=== PATIENT | female | born 1970 | race African-American/Black ===

== ENCOUNTER → 2016-09-22 | Outpatient (CLI) | payer MEDICAID, MEDICARE | LOC: RAD 08:11 | PROVIDERS: ATTEND Specialist | DX: D13.7 Benign neoplasm of endocrine pancreas (principal); R10.9 Unspecified abdominal pain; R51 Headache | CPT/HCPCS: 70450; 74150 ==

== ENCOUNTER 2016-10-10 08:05 | Emergency (ER) | payer MEDICARE ==
--- NOTE | 2016-10-10 10:03 | ER Document Report ---
ED General - General Chief Complaint: Abdominal Pain Stated Complaint: BODY PAIN Notes: Patient is a 46-year-old female presents emergency Department with multitude of complaints. Her primary complaint today is that she has had a cough for the past 3 months and has been coughing up blood for the past 2 weeks with associated right side chest pain, shortness of breath and dyspnea on exertion. She states that the blood has been blood tinger sputum after coughing aggressively. Her SOB resolves after albuterol which is consistent with her history of asthma. Patient denies any family history of cancer, blood clots. Patient is a nonsmoker. She states that she has seen her heme/onc physician Dr. George recently for a routine follow-up for her iron deficiency anemia and she was referred over to the radiology Department for an x-ray Tuesday but she states she lost the paperwork and was unable to go. At this time she states that she does not feel short of breath and she is not experiencing any chest pain. States her chest pain only with coughing and is localized to the right aspect of her chest. In addition to her respiratory complaints, patient admits that she also is having abdominal complaints. Patient has been evaluated by Dr. Luc De Leon and has had both an EGD and colonoscopy. EGD revealed gastritis and colonoscopy revealed polyps. She has yet to follow up with him and she has not been taking any medications for the gastritis. At this time she admits to mild abdominal discomfort with slight nausea but denies any vomiting, diarrhea, constipation. Past medical history significant for iron deficiency anemia previously requiring blood transfusions, gastritis, carpal tunnel syndrome, asthma, chronic back pain, seasonal allergies Past surgical history significant for uterine ablation, colonoscopy and EGD Social history denies smoking, alcohol, drug use Allergies to IVP dye TRAVEL OUTSIDE OF THE [place] IN LAST 30 DAYS: No - Related Data Allergies/Adverse Reactions: iodipamide sodium [Iodipamide Sodium] Allergy (Severe, Verified 10/10/16 08:23) RESP DISTRESS IVP dye Allergy (Severe, Uncoded 10/10/16 08:23) resp distress Past Medical History - Social History Smoking Status: Never Smoker Chew tobacco use (# tins/day): No Frequency of alcohol use: None Drug Abuse: None Family History: Reviewed & Not Pertinent Patient has suicidal ideation: No Patient has homicidal ideation: No - Past Medical History Cardiac Medical History: Denies: Hx Coronary Artery Disease, Hx Heart Attack, Hx Hypertension Pulmonary Medical History: Reports: Hx Asthma - last episode over several months ago Denies: Hx Bronchitis, Hx COPD, Hx Pneumonia Neurological Medical History: Reports: Hx Migraine. Denies: Hx Cerebrovascular Accident, Hx Seizures Renal/ Medical History: Reports: Hx Kidney Stones. Denies: Hx Peritoneal Dialysis GI Medical History: Reports: Hx Gastroesophageal Reflux Disease. 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 Denies: Hx Hysterectomy, Hx Mastectomy, Hx Open Heart Surgery, Hx Pacemaker - Immunizations Hx Diphtheria, Pertussis, Tetanus Vaccination: No Review of Systems - Review of Systems Constitutional: No symptoms reported EENT: No symptoms reported Cardiovascular: See HPI Respiratory: See HPI Gastrointestinal: See HPI Genitourinary: No symptoms reported Female Genitourinary: No symptoms reported Musculoskeletal: Other - admits to right shoulder pain-constant, worse with motion, radiates into her neck Skin: No symptoms reported Hematologic/Lymphatic: See HPI Neurological/Psychological: No symptoms reported Physical Exam - Vital signs Vitals: Temp Pulse Resp BP Pulse Ox 98.3 F 106 H 24 H 150/86 H 99 10/10/16 08:18 10/10/16 08:18 10/10/16 08:18 10/10/16 08:18 10/10/16 08:18 - Notes Notes: PHYSICAL EXAM GENERAL: Alert, interacts well. HEAD: Normocephalic, atraumatic. EYES: Pupils equal, round, and reactive to light. Extraocular movements intact. ENT: Oral mucosa moist, tongue midline. NECK: Full range of motion. Supple. Trachea midline. Tenderness to palpation of the right trapezius. LUNGS: diminshed auscultation bilaterally, no wheezes, rales, or rhonchi. No respiratory distress. HEART: Regular rate and rhythm. No murmurs, gallops, or rubs. Dorsalis muscle tenderness to palpation, patient denies this is her chest pain with cough. ABDOMEN: Soft, nondistended, nontender. No guarding, rebound, or rigidity.. Bowel sounds present in all 4 quadrants. EXTREMITIES: Moves all 4 extremities spontaneously. No edema, radial and dorsalis pedis pulses 2/4 bilaterally. No cyanosis. NEUROLOGICAL: Alert and oriented x3. Normal speech. PSYCH: Normal affect, normal mood. SKIN: Warm, dry, normal turgor. No rashes or lesions noted. Course - Re-evaluation Re-evalutation: 10/10/16 11:09 Patient is a 46-year-old female who presents complaining of intermittent cough with associated shortness of breath. Her presentation is consistent with chronic asthma. Currently she is hemodynamically stable, no acute distress and afebrile no concern for respiratory distress. Her chest x-ray does not reveal any acute cardiopulmonary process. no concern for pneumonia. Regards to her GI complaint, this is consistent with gastroenteritis which was found on her EGD. Her symptoms have responded to GI cocktail. Discharged home and can follow up with GI and PCP. - Vital Signs Vital signs: Temp Pulse Resp BP Pulse Ox 98.3 F 106 H 24 H 150/86 H 99 10/10/16 08:18 10/10/16 08:18 10/10/16 08:18 10/10/16 08:18 10/10/16 08:18 - Laboratory Result Diagrams: 10/10/16 10:10 10/10/16 10:10 Laboratory results interpreted by me: 10/10/16 10/10/16 09:55 10:10 WBC 3.7 L Urine Blood MODERATE H - Diagnostic Test Radiology reviewed: Image reviewed, Reports reviewed Discharge - Discharge Clinical Impression: Cough, Indigestion Condition: Good Disposition: HOME, SELF-CARE Additional Instructions: ASTHMA: You have been diagnosed as having asthma. This is a condition where there is episodic tightness in the bronchial tubes. Allergies, infections, and polluted or cold air may be contributing factors. Emergency treatment of a severe asthma attack may include adrenaline shots , or bronchodilator aerosol. You may feel lightheaded, have a decreased exercise tolerance and a rapid pulse for an hour or two. Rest and get plenty of fluids. Home treatment of asthma requires bronchodilator drugs. These can be administered by injection, inhalation, or by mouth. Antibiotics and corticosteroids may be required for some patients. You should avoid chemical fumes, dusts, pollens, and exercising in very cold or dry air. If you smoke, stop!! If you develop a fever, increased wheezing, chest pain, or severe shortness of breath, you should contact the doctor immediately. INHALED BRONCHODILATORS: You have received treatment(s) of and/or prescription for an inhaled bronchodilator -- a medication which stimulates the airways in the lung to dilate. This improves the flow of air in asthma, bronchitis, and emphysema. These medicines have some similarity to adrenaline, and can cause similar side effects: shakiness, racing heart, and a sense of nervousness. These side effects decrease with time. Contact your doctor if these side effects are severe. Do not over-use the medicine. Too-frequent use of the inhaler may make it ineffective. Call your doctor if the inhaler is not controlling your symptoms at the prescribed doses. FOLLOW-UP CARE: If you have been referred to a physician for follow-up care, call the physician s office for an appointment as you were instructed or within the next two days. If you experience worsening or a significant change in your symptoms, notify the physician immediately or return to the Emergency Department at any time for re-evaluation. Gastritis You have an inflammation of the stomach called gastritis. This commonly causes upper abdominal pain, nausea, and vomiting. In severe cases, bleeding of the stomach lining can occur. Gastritis can be caused by bacteria or viruses , alcohol, or stomach-irritating drugs. Begin with sips of clear liquids. Take increasing amounts of fluid over the first 24 hours. Then start small amounts of bland foods (such as dry toast , applesauce, mashed potato). Gradually resume your usual diet. You should take antacids every two hours until the pain has subsided. Acid -suppressing drugs may be prescribed as well. Avoid aspirin, caffeine, tobacco , and alcohol. If the abdominal pain worsens, or there is evidence of major bleeding in the stomach (such as black, tarry stool, bloody or black vomit, or lightheadedness), you should return immediately. Call the doctor if you aren't improved in 24 to 36 hours. Prescriptions: Albuterol Sulfate [Proair HFA Inhalation Aerosol 8.5 gm MDI] 1 puff IH Q4 PRN # 1 mdi PRN Reason: Lansoprazole [Prevacid] 15 mg PO DAILY #14 capsule.dr Forms: Elevated Blood Pressure Referrals: VIDYA GEORGE MD [Primary Care Provider] - Follow up as needed JAGUAR DE LEON MD [ACTIVE STAFF] - Follow up as needed
[2016-10-10] MEDS ORDERED: ALBUTEROL SULFATE 0.083% NEB 2.5 MG/3 ML AMPUL NEB ONE (10:09)
[2016-10-10 10:15] LABS: APPEARANCE,URINE SLIGHTLY-CLOUDY; BILIRUBIN,URINE NEGATIVE (NEGATIVE); GLUCOSE, URINE NEGATIVE (NEGATIVE); KETONES,URINE NEGATIVE (NEGATIVE); LEUKOCYTE ESTERASE,URINE NEGATIVE (NEGATIVE); NITRITE,URINE NEGATIVE (NEGATIVE); PROTEIN,URINE NEGATIVE (NEGATIVE); URINE SPECIFIC GRAVITY 1.016; UROBILINOGEN,URINE NEGATIVE mg/dL (<2.0)
[2016-10-10 10:24] LABS: ABSOLUTE EOSINOPHILS # (AUTO) 0.1 10^3/uL (0.0-0.6); ABSOLUTE LYMPHOCYTES (AUTO) 1.3 10^3/uL (0.5-4.7); ABSOLUTE MONOCYTES (AUTO) 0.3 10^3/uL (0.1-1.4); BASOPHILS % (AUTO) 0.3 % (0-2); EOSINOPHILS % (AUTO) 3.5 % (0-6); HEMATOCRIT 41.4 % (36.0-47.0); HEMOGLOBIN 13.8 g/dL (12.0-15.5); LYMPHOCYTES % (AUTO) 33.9 % (13-45); MEAN CORPUSCULAR HEMOGLOBIN 30.3 pg (27.0-33.4); MEAN CORPUSCULAR HGB CONC 33.4 g/dL (32.0-36.0); MEAN CORPUSCULAR VOLUME 91 fl (80-97); RED BLOOD COUNT 4.56 10^6/uL (3.72-5.28); RED CELL DISTRIBUTION WIDTH 13.1 % (11.5-14.0); SEGMENTED NEUTROPHILS % (AUTO) 53.3 % (42-78); WHITE BLOOD COUNT 3.7 10^3/uL (4.0-10.5)
[2016-10-10 10:50] LABS: ALANINE AMINOTRANSFERASE 30 U/L (9-52); ALBUMIN 4.4 g/dL (3.5-5.0); ALKALINE PHOSPHATASE 55 U/L (38-126); ANION GAP 9 (5-19); ASPARTATE AMINO TRANSFERASE 22 U/L (14-36); BILIRUBIN,TOTAL 1.2 mg/dL (0.2-1.3); BLOOD UREA NITROGEN 12 mg/dL (7-20); CALCIUM 9.9 mg/dL (8.4-10.2); CARBON DIOXIDE 29 mmol/L (22-30); CHLORIDE 105 mmol/L (98-107); CREATININE RESULT 0.74 mg/dL (0.52-1.25); GLUCOSE 99 mg/dL (75-110); POTASSIUM 4.6 mmol/L (3.6-5.0); SODIUM 142.5 mmol/L (137-145); TOTAL PROTEIN 7.2 g/dL (6.3-8.2)
[2016-10-10] MEDS ORDERED: LIDOCAINE 2% JELLY 30 ML TUBE TOP ONE (11:05)
[2016-10-10] MEDS ORDERED: MAG HYDROX/AL HYDROX/SIMETH SUSP 30 ML UDCUP PO ONE (11:05)
[2016-10-10] MEDS ORDERED: LIDOCAINE 2% VISCOUS SOLN 20 ML UDCUP PO ONE (11:17)
[2016-10-10 11:32] VITALS: BP 129/72
== END 2016-10-10 11:29 | disposition home or self-care (01) ==
LOC: ER 08:05
DX: R05 Cough (principal); K30 Functional dyspepsia; R10.9 Unspecified abdominal pain; R52 Pain, unspecified; R07.9 Chest pain, unspecified; R06.02 Shortness of breath
CPT/HCPCS: 94640; 99284; 36415; 85025; 80053; 81001; 87804; 71020; J3490; A9270

== ENCOUNTER → 2016-11-09 | Outpatient (CLI) | payer MEDICARE | LOC: RAD 08:02 | PROVIDERS: ATTEND Internal Medicine Gastroenterology | DX: R10.84 Generalized abdominal pain (principal) | CPT/HCPCS: 78227; A9537; Q9969; J2805 ==

== ENCOUNTER 2016-12-07 10:36 | Day surgery (SDC) | payer MEDICARE ==
--- NOTE | 2016-11-23 11:20 | EKG REPORT ---
SEVERITY:- NORMAL ECG - SINUS RHYTHM : Confirmed by: Trever Dickson 23-Nov-2016 11:19:56
[2016-11-23 11:34] LABS: HEMATOCRIT 40.2 % (36.0-47.0); HEMOGLOBIN 13.5 g/dL (12.0-15.5); HGB HCT DIFFERENCE 0.3; MEAN CORPUSCULAR HEMOGLOBIN 30.4 pg (27.0-33.4); MEAN CORPUSCULAR HGB CONC 33.6 g/dL (32.0-36.0); MEAN CORPUSCULAR VOLUME 90 fl (80-97); RED BLOOD COUNT 4.45 10^6/uL (3.72-5.28); RED CELL DISTRIBUTION WIDTH 13.7 % (11.5-14.0); WHITE BLOOD COUNT 4.6 10^3/uL (4.0-10.5)
[2016-11-23 11:39] LABS: PARTIAL THROMBOPLASTIN TIME 26.6 SEC (23.5-35.8); PROTHROMBIN TIME 12.7 SEC (11.4-15.4)
[~2016-12-07 10:36] MED LIST: CEFAZOLIN 1 GM/D5W RTU 1 GM/50 ML RTUPB IV PRN; LIDOCAINE 0.5% INJ-PF (5 MG/ML) 50 ML SDV INJ PRN; RINGERS SOLUTION,LACTATED 1,000 ML IV PRN
[2016-12-07] MEDS ORDERED: MIDAZOLAM 2 MG/2 ML INJ ONE (11:16)
[2016-12-07] MEDS ORDERED: PROPOFOL INJ 200 MG/20 ML VIAL IV ONE (11:17)
[2016-12-07] MEDS ORDERED: LIDOCAINE 0.5% INJ-PF (5 MG/ML) 50 ML SDV ONE (11:17)
[2016-12-07] MEDS ORDERED: DIPHENHYDRAMINE HCL 50 MG/ML VIAL IV PRN (13:26)
[2016-12-07] MEDS ORDERED: MEPERIDINE HCL/PF INJ 25 MG/1 ML DISP.SYRIN IV PRN (13:26)
[2016-12-07] MEDS ORDERED: OXYCODONE-ACETAMINOPHEN 5-325 MG TABLET PO PRN ×2 (13:26)
[2016-12-07] MEDS ORDERED: FENTANYL CITRATE INJ/PF 100 MCG/2 ML AMPUL IV PRN ×3 (13:26)
[2016-12-07] MEDS ORDERED: MORPHINE SULFATE 10 MG/ML INJ IV PRN (13:26)
[2016-12-07] MEDS ORDERED: PROMETHAZINE HCL INJ 25 MG/1 ML VIAL IV PRN ×2 (13:26)
[2016-12-07] MEDS: FLUMAZENIL INJ 0.5 MG/5 ML VIAL IV ONE ×2 (13:56→13:58)
--- NOTE | 2016-12-07 13:59 | Operative Report ---
Operative Report DATE OF SURGERY: 12/07/16 PREOPERATIVE DIAGNOSIS: Right carpal tunnel syndrome POSTOPERATIVE DIAGNOSIS: Same OPERATION: Right carpal tunnel release SURGEON: MARIELENA UNDERWOOD ANESTHESIA: IV-Regional - Fifty-Six block TISSUE REMOVED OR ALTERED: None COMPLICATIONS: None ESTIMATED BLOOD LOSS: minimal PROCEDURE: The correct side for carpal tunnel release was identified with the patient. The patient was then brought into the operating room and placed on the operating room table in a supine position. A Manuel block was instilled by anesthesia. The tourniquet was set at approximately 270mm Hg. The arm was then prepped with a Betadine scrub and Betadine solution and draped in a sterile aseptic manner. An outlined overlying the carpal tunnel was made and a small zig zag across the wrist was outlined. An incision was then made with a 15 blade. This was carried down through the superficial palmar fascia. The palmaris brevis was identified and was coagulated as we proceeded deeper. Dissection continued until the transverse carpal ligament was exposed. Using a [place] blade a small dissection was performed to get past the surface of the transverse carpal ligament and enter into the carpal canal. After there was exposure a [place] elevator was placed to protect the median nerve. Using the freer elevator and the tunnel while protecting the nerve [id number] the transverse carpal ligament was released distally and proximally. Throughout the dissection great caution was used to identify any anomalous branching of the median nerve and motor branch. Along the wrist a small zig zag was carried to the distal most portion of the forearm. We then went ahead and freed the distal and the brachial fascia of the forearm in order to minimize any areas of possible entrapment in the future.. After the dissection was completed confirmation of release into the distal forearm of the antebrachial fascia as well as distally showing the dark yellow fat of the palm. The arch was identified and was not jeopardized throughout the dissection. An epineurotomy was performed of along the course of the median nerve so that there will be no further areas of any compression to the nerve. Throughout the case the bipolar was used for hemostasis . Betadine saline irrigation was performed in the operative field. Once good hemostasis was obtained the closure was then performed using 4-0 and 5 -0 Prolene horizontal mattress and simple sutures. The tourniquet was then released and there was good blood flow returned to the fingers and no signs of any active bleeding at the incision line. Bacitracin was applied then Xeroform was applied and 4 x 4's were placed. A splint was then applied with web roll and Ortho-Glass with Tristian wraps. Patient was then reversed from anesthesia and taken to the [facility] for recovery. This dictation was performed with straight and actually speaking. If there are any irregularities please contact the dictating physician. Subjective: No complaints Objective: Vital signs stable afebrile No bleeding Dressing intact Assessment and plan: Doing well. Elevate the operative site. Resume medications. Take antibiotics for 1 day Follow-up Full instructions were given to the patient and family and they understand Portions of this note may be dictated using [employer] voice recognition software. Occasional variations and spelling and vocabulary could be possible and are unintentional. Additionally, there is a chance that some errors may not be caught or corrected. Please notify the offer of any discrepancies noted or if any statements are unclear.
--- NOTE | 2016-12-07 14:03 | PDOC DISCHARGE SUMMARY ---
Discharge Summary (SDC) - Discharge Final Diagnosis: Right carpal tunnel syndrome Date of Surgery: 12/07/16 Condition: Good Treatment or Instructions: Antibiotics for 1 day, then discontinue. Elevate operative area to decrease swelling. Do not strain, or lift heavy objects. Call for excessive bleeding, increased temperature of 101, uncontrolled pain, or excessive nausea or vomiting. You may reach Dr. Ayers through his office at [phone]. In the event of an emergency after hours, then contact Dr. Ayers through [facility]. Return to the office for a postop check on . The time will be scheduled by the nursing staff of [facility] prior to discharge. Please give the patient a copy of their labs and EKG so they can bring this to their PMD. Thank you Portions of this note may be dictated using [employer] voice recognition software. Occasional variations and spelling and vocabulary could be possible and are unintentional. Additionally, there is a chance that some errors may not be caught or corrected. Please notify the offer of any discrepancies noted or if any statements are unclear. Discharge Diet: As Tolerated Respiratory Treatments at Home: Deep Breathing/Coughing Discharge Activity: Activity As Tolerated Report the Following to Your Physician Immediately: Swelling, Warmth - Keep right hand elevated and monitor capillary refill. There are any changes please contact Dr. Ayers.
[2016-12-07] MEDS ORDERED: OXYCODONE-ACETAMINOPHEN 5-325 MG TABLET ONE (15:56)
[2016-12-07 16:58] VITALS: BP 142/90
== END 2016-12-07 16:45 | disposition home or self-care (01) ==
LOC: OROUT 10:36
PROVIDERS: ATTEND Plastic Surgery
PROC: 01N50ZZ Release Median Nerve, Open Approach (ICD-10-PCS; principal; 2016-12-07 12:30)
DX: G56.01 Carpal tunnel syndrome, right upper limb (principal); M19.90 Unspecified osteoarthritis, unspecified site; G43.909 Migraine, unspecified, not intractable, without status migrainosus; J45.909 Unspecified asthma, uncomplicated; M47.9 Spondylosis, unspecified; Z79.01 Long term (current) use of anticoagulants; Z79.51 Long term (current) use of inhaled steroids; Z79.899 Other long term (current) drug therapy
CPT/HCPCS: 93005; 36415; 84703; 85027; 85610; 85730; 81025; 93010; 64721; J3490 ×2; J2250; A9270; J2704

== ENCOUNTER 2016-12-17 16:48 | Emergency (ER) | payer MEDICARE ==
[2016-12-17 17:08] VITALS: BP 126/82
--- NOTE | 2016-12-17 19:52 | ER Document Report ---
ED General - General Mode of Arrival: Ambulatory Information source: Patient TRAVEL OUTSIDE OF THE [place] IN LAST 30 DAYS: No - General Chief Complaint: Post Surgical Pain Stated Complaint: POST SURGICAL SWELLING Time Seen by Provider: 12/17/16 19:31 Notes: Patient presents today with complaints of "messing up" her carpal tunnel surgery wound. Patient states that she put her hand in warm water which she "was not supposed to do". Patient states that she has seen purulent discharge and she is now unable to move her fingers, both of which are subjective. (MARIANO STEPHENS) - Related Data Allergies/Adverse Reactions: iodipamide sodium [Iodipamide Sodium] Allergy (Severe, Verified 12/17/16 17:06) RESP DISTRESS IVP dye Allergy (Severe, Uncoded 12/17/16 17:06) resp distress Past Medical History - General Information source: Patient - Social History Smoking Status: Never Smoker Cigarette use (# per day): No Chew tobacco use (# tins/day): No Frequency of alcohol use: None Drug Abuse: None Lives with: Family Family History: Reviewed & Not Pertinent Patient has suicidal ideation: No Patient has homicidal ideation: No Pulmonary Medical History: Reports: Hx Asthma Neurological Medical History: Reports: Hx Migraine Renal/ Medical History: Reports: Hx Kidney Stones GI Medical History: Reports: Hx Gastroesophageal Reflux Disease Musculoskeltal Medical History: Reports Hx Arthritis - SPINE Psychiatric Medical History: Reports: Hx Depression Past Surgical History: Reports: Hx Section - x 4, Hx Dilation and Curettage, Hx Gynecologic Surgery - D & C, Hx Orthopedic Surgery - right leg as a child per pt, carpal tunnel, c-2 discectomy, Hx Rectal Surgery - hemorrhoids - Immunizations Hx Diphtheria, Pertussis, Tetanus Vaccination: Yes Review of Systems - Review of Systems Constitutional: No symptoms reported EENT: No symptoms reported Cardiovascular: No symptoms reported Respiratory: No symptoms reported Gastrointestinal: No symptoms reported Genitourinary: No symptoms reported Female Genitourinary: No symptoms reported Musculoskeletal: No symptoms reported Skin: See HPI, Other - "messed up" surgical wound Hematologic/Lymphatic: No symptoms reported Neurological/Psychological: No symptoms reported -: Yes All other systems reviewed and negative Physical Exam - Vital signs Vitals: Temp Pulse Resp BP Pulse Ox 98.6 F 80 16 126/82 H 99 12/17/16 17:07 12/17/16 17:07 12/17/16 17:07 12/17/16 17:07 12/17/16 17:07 - Notes Notes: Physical Exam: General: Alert, appears well. HEENT: Normocephalic. Atraumatic. PERRLA. Extraocular movements intact. Oropharynx clear. Neck: Supple. Respiratory: No respiratory distress. Abdominal: Normal Inspection. No distension. Extremities: Moves all four extremities. Neurological: Cranial nerves II-XII grossly intact bilaterally. Normal cognition. AAOx4. Normal speech. Psychological: Normal affect. Normal Mood. Skin: Wound to right hand consistent with carpal tunnel surgery, stitches in place, no drainage or surrounding erythema. No signs of infection. Patient able to move digits distally with good pulses. (MARIANO STEPHENS) Course - Re-evaluation Re-evalutation: 12/17/16 20:00 Patient presents to the emergency department for postop wound check. Dr. Ayers is a physician he did a carpal tunnel repair on her 2 weeks ago. He actually saw her in the office yesterday and the wound was looking well she said she soaked her splint in the water and he was concerned that might be macerated and wanted her to be checked. She thinks it is infected and says she cannot move anything in her arm or any of her fingers. On examination she is well- appearing nontoxic in no acute distress the incision is clean dry and intact there is no redness swelling drainage she is able to bend her wrist back-and- forth no signs of flexor tenosynovitis or acute cellulitis or abscess formation. I cannot palpate any abscesses or drainage. Pulses sensation and motor intact normal sensation. Unable to move all of her digits without any difficulty. I talked with Dr. Ayers on the telephone he asked me to start her on Keflex he is here in the office on Tuesday and discuss specific reasons for ED return sooner (CHRISTIANO SIM) - Vital Signs Vital signs: Temp Pulse Resp BP Pulse Ox 98.6 F 82 17 126/82 H 100 12/17/16 17:07 12/17/16 20:13 12/17/16 20:13 12/17/16 20:13 12/17/16 20:13 Discharge - Discharge Clinical Impression: Encounter for postoperative wound check Condition: Stable Disposition: HOME, SELF-CARE Additional Instructions: Carpal Tunnel SURGERY post op wound check Been seen for postop wound check your splint was wet as you had accidentally got wet water. The wound itself is healing well. I spoke with the surgeon who did your surgery he wants me to start her on Keflex have you call his office first thing on Tuesday and he will see him in the office on Tuesday. Can go ahead and start the antibiotics as well as ice and elevation were to put the splint back on. Return to the emergency department between and Tuesday for increasing worsening or new symptoms Prescriptions: Cephalexin Monohydrate [Keflex 500 mg Capsule] 500 mg PO QID #28 capsule Referrals: MARIELENA AYERS MD [ACTIVE STAFF] - (Call his office on Tuesday to be seen in follow-up on Tuesday return for increasing worsening or new symptoms) Scribe Attestation: 12/17/16 19:59 I personally performed the services described in the documentation, reviewed and edited the documentation which was dictated to my scribe in my presence, and it accurately records my words and actions. (CHRISTIANO SIM) Scribe Documentation - Scribe Written by Eulalio:: Eulalio Zuluaga, [id number] acting as scribe for :: Hola
[2016-12-17] MEDS ORDERED: CEPHALEXIN 500 MG CAPSULE PO ONE (20:02)
== END 2016-12-17 20:14 | disposition home or self-care (01) ==
LOC: ER 16:48
DX: G89.18 Other acute postprocedural pain (principal); K21.9 Gastro-esophageal reflux disease without esophagitis; Z87.442 Personal history of urinary calculi
CPT/HCPCS: 99283; A9270

== ENCOUNTER 2016-12-28 09:32 | Day surgery (SDC) | payer MEDICARE ==
[2016-12-21 09:30] LABS: HEMATOCRIT 40.8 % (36.0-47.0); HEMOGLOBIN 13.5 g/dL (12.0-15.5); HGB HCT DIFFERENCE -0.3; MEAN CORPUSCULAR HEMOGLOBIN 29.7 pg (27.0-33.4); MEAN CORPUSCULAR HGB CONC 33.1 g/dL (32.0-36.0); MEAN CORPUSCULAR VOLUME 90 fl (80-97); RED BLOOD COUNT 4.55 10^6/uL (3.72-5.28); RED CELL DISTRIBUTION WIDTH 13.7 % (11.5-14.0); WHITE BLOOD COUNT 5.2 10^3/uL (4.0-10.5)
[2016-12-21 09:55] LABS: ALANINE AMINOTRANSFERASE 35 U/L (9-52); ALBUMIN 4.4 g/dL (3.5-5.0); ALKALINE PHOSPHATASE 63 U/L (38-126); ANION GAP 13 (5-19); ASPARTATE AMINO TRANSFERASE 22 U/L (14-36); BILIRUBIN,DIRECT 0.6 mg/dL (0.0-0.4); BILIRUBIN,TOTAL 1.2 mg/dL (0.2-1.3); BLOOD UREA NITROGEN 13 mg/dL (7-20); CALCIUM 9.6 mg/dL (8.4-10.2); CARBON DIOXIDE 22 mmol/L (22-30); CHLORIDE 104 mmol/L (98-107); GLUCOSE 95 mg/dL (75-110); POTASSIUM 4.5 mmol/L (3.6-5.0); SODIUM 138.8 mmol/L (137-145); TOTAL PROTEIN 7.8 g/dL (6.3-8.2)
[~2016-12-28 09:32] MED LIST changes: +ACETAMINOPHEN 325 MG TABLET PO PRN; +BUPIVACAINE HCL 0.25 % INJ/PF (2.5 MG/1 ML) 30 ML VIAL ONE; +LACTATED RINGERS 1000 ML IV PRN; -LIDOCAINE 0.5% INJ-PF (5 MG/ML) 50 ML SDV INJ PRN
[2016-12-28] MEDS ORDERED: FENTANYL CITRATE INJ/PF 250 MCG/5 ML AMPULE ONE (09:51)
[2016-12-28] MEDS ORDERED: MIDAZOLAM 2 MG/2 ML INJ ONE (09:51)
[2016-12-28] MEDS ORDERED: PROPOFOL INJ 200 MG/20 ML VIAL IV ONE (09:52)
[2016-12-28] MEDS ORDERED: ACETAMINOPHEN 100 ML IV ONE (09:52)
[2016-12-28] MEDS ORDERED: ALBUTEROL SULFATE 0.083% NEB 2.5 MG/3 ML AMPUL NEB ONE (10:09)
[2016-12-28] MEDS ORDERED: PROMETHAZINE HCL INJ 25 MG/1 ML VIAL IV PRN ×2 (11:02)
[2016-12-28] MEDS ORDERED: MEPERIDINE HCL/PF INJ 25 MG/1 ML DISP.SYRIN IV PRN (11:02)
[2016-12-28] MEDS ORDERED: DIPHENHYDRAMINE HCL 50 MG/ML VIAL IV PRN (11:02)
[2016-12-28] MEDS ORDERED: FENTANYL CITRATE INJ/PF 100 MCG/2 ML AMPUL IV PRN ×3 (11:02)
[2016-12-28] MEDS ORDERED: OXYCODONE-ACETAMINOPHEN 5-325 MG TABLET PO PRN ×3 (11:02→12:05)
[2016-12-28] MEDS ORDERED: MORPHINE SULFATE 10 MG/ML INJ IV PRN (11:02)
[2016-12-28] MEDS ORDERED: ONDANSETRON HCL INJ/PF 4 MG/2 ML SDV IV PRN ×2 (11:02→12:05)
--- NOTE | 2016-12-28 12:01 | Operative Report ---
Operative Report DATE OF SURGERY: 12/28/16 PREOPERATIVE DIAGNOSIS: Biliary dyskinesia. POSTOPERATIVE DIAGNOSIS: Biliary dyskinesia, intra-abdominal adhesions. Pelvic venous congestion. Left ovarian cyst. Evidence of bilateral tubal ligations. OPERATION: Laparoscopic cholecystectomy. Laparoscopic lysis of adhesions. Exploratory laparoscopy. SURGEON: MAX DIAZ ANESTHESIA: GA TISSUE REMOVED OR ALTERED: gallbladder COMPLICATIONS: None ESTIMATED BLOOD LOSS: Minimal INTRAOPERATIVE FINDINGS: Normal-appearing liver, normal-appearing gallbladder, normal-appearing anterior surface of the stomach and first and second portion of the duodenum. Normal-appearing right colon. Normal-appearing appendix. Omental adhesions to the pelvis and to the anterior abdominal wall. Uterine enlargement. Evidence of bilateral tubal ligations. Pelvic venous congestion. Left ovarian cyst. PROCEDURE: Informed consent was obtained. Patient was brought to the operating room placed operating table in supine position. After satisfactory induction of general anesthesia, patient's abdomen was prepped and draped in usual sterile fashion. A supraumbilical midline incision was made and dissection carried down to the fascia the peritoneal cavity entered without difficulty. Ferro trocar was inserted. Pneumoperitoneum produced good patient toleration. 5 mm trocar was placed in the subxiphoid location.Two 5 mm trochars were placed in the right subcostal location. Exploratory laparoscopy was performed first. The liver and gallbladder appeared normal. The anterior surface of the stomach and the first and second portion of the duodenum appeared to be normal. There were omental adhesions to the lower midline these adhesions were taken down taking great care to avoid bleeding and injury to the underlying structures. There were omental adhesions to the right pelvic sidewall these adhesions were also taken down. The right colon and the appendix appeared normal. The uterus appeared enlarged. She had evidence of bilateral tubal ligations. Her left ovary had benign appearing cysts. The right ovary appeared normal. She had evidence of pelvic venous congestion. [facility] consultation was obtained intraoperatively and they felt that the appearance was not suspicious for malignancy however she may benefit from a [facility] consultation as an outpatient for her pelvic venous congestion. The gallbladder was grasped and retracted cephalad over the dome of the liver. The infundibulum of the gallbladder was grasped retracted laterally and inferiorly thus exposing calot's triangle. The cystic duct gallbladder junction was clearly identified and the cystic duct was clipped and divided. Cystic artery was likewise taken. The gallbladder was taken off the gallbladder bed using the hook electrocautery technique. The gallbladder was removed with an Endobag through the Ferro trocar site fascial defect. Hemostasis appeared excellent. All trochars were removed under the direct vision a laparoscope to ensure hemostasis. The Ferro trocar site fascial defect was closed with interrupted Vicryl sutures. All skin incisions were closed with subcuticular interrupted Monocryl sutures. Marcaine was injected at the port sites. Patient tolerated procedure well no apparent complications and was taken to the recovery area in stable condition.
[2016-12-28] MEDS ORDERED: RINGERS SOLUTION,LACTATED 1,000 ML IV PRN (12:05)
--- NOTE | 2016-12-28 12:07 | PDOC DISCHARGE SUMMARY ---
Discharge Summary (SDC) - Discharge Final Diagnosis: Biliary dyskinesia. Pelvic venous congestion. Left ovarian cyst. Intra- abdominal adhesions. Date of Surgery: 12/28/16 Discharge Date: 12/28/16 Condition: Good Treatment or Instructions: Laparoscopic cholecystectomy with exploratory laparoscopy with laparoscopic lysis of adhesions. May discharge patient home when met discharge criteria. Follow-up with me in 2 weeks. Stay active but avoid strenuous activity. May shower tomorrow. Steri-Strips on. Prescriptions: Oxycodone HCl/Acetaminophen [Percocet 5-325 mg Tablet] 1 tab PO ASDIR PRN #25 tablet PRN Reason: Discharge Diet: As Tolerated Discharge Activity: Activity As Tolerated Report the Following to Your Physician Immediately: Yellow Skin, Fever over 101 Degrees, Unusual Bleeding, Redness, Drainage-Foul Smelling
[2016-12-28] MEDS ORDERED: FENTANYL CITRATE INJ/PF 100 MCG/2 ML AMPUL ONE (12:27)
[2016-12-28] MEDS ORDERED: IBUPROFEN INJ 800 MG/8 ML VIAL IV ONE (12:48)
[2016-12-28 13:00] LABS: ALANINE AMINOTRANSFERASE 34 U/L (9-52); ALKALINE PHOSPHATASE 57 U/L (38-126); ASPARTATE AMINO TRANSFERASE 21 U/L (14-36); BILIRUBIN,DIRECT 0.3 mg/dL (0.0-0.4); BILIRUBIN,TOTAL 0.8 mg/dL (0.2-1.3); TOTAL PROTEIN 6.9 g/dL (6.3-8.2)
[2016-12-28 14:36] VITALS: BP 116/74
[2016-12-28] MEDS ORDERED: GLYCOPYRROLATE INJ 0.4 MG/2 ML VIAL ONE (15:11)
[2016-12-28] MEDS ORDERED: NEOSTIGMINE METHYLSULFATE 10 MG/10 ML VIAL ONE (15:11)
[2016-12-28] MEDS ORDERED: ONDANSETRON HCL INJ/PF 4 MG/2 ML SDV ONE (15:11)
[2016-12-28] MEDS ORDERED: SUCCINYLCHOLINE CHLORIDE INJ 200 MG/10 ML VIAL ONE (15:11)
[2016-12-28] MEDS ORDERED: VECURONIUM BROMIDE INJ 10 MG VIAL IV ONE (15:11)
[2016-12-28] MEDS ORDERED: DEXAMETHASONE SOD PHOSPHATE INJ 4 MG/1 ML VIAL ONE (15:11)
[2016-12-28] MEDS ORDERED: LIDOCAINE 2% INJ-PF (20 MG/ML) 10 ML AMPUL ONE (15:11)
== END 2016-12-28 14:38 | disposition home or self-care (01) ==
LOC: OROUT 09:32
PROVIDERS: ATTEND Surgery
PROC: 0WJJ4ZZ Inspection of Pelvic Cavity, Percutaneous Endoscopic Approach (ICD-10-PCS; 2016-12-28)
PROC: 0FT44ZZ Resection of Gallbladder, Percutaneous Endoscopic Approach (ICD-10-PCS; principal; 2016-12-28 11:30)
DX: K81.1 Chronic cholecystitis (principal); N83.202 Unspecified ovarian cyst, left side; K66.0 Peritoneal adhesions (postprocedural) (postinfection); K21.9 Gastro-esophageal reflux disease without esophagitis; E16.2 Hypoglycemia, unspecified; J45.909 Unspecified asthma, uncomplicated; M19.90 Unspecified osteoarthritis, unspecified site; G43.909 Migraine, unspecified, not intractable, without status migrainosus; D64.9 Anemia, unspecified; Z92.89 Personal history of other medical treatment; Z91.041 Radiographic dye allergy status
CPT/HCPCS: 36415 ×2; 83690; 85027; 81025; 80076; 80053; 88304 ×2; 47562; J2250; J0690; J1100; J3010 ×2; J3490 ×2; A9270 ×2; J0330; J2405; J2704; J0131; J1741; 790

== ENCOUNTER 2017-02-23 05:14 | Inpatient (IN) | payer MEDICARE ==
[2017-02-14 12:38] LABS: APPEARANCE,URINE SLIGHTLY-CLOUDY; BILIRUBIN,URINE NEGATIVE (NEGATIVE); GLUCOSE, URINE NEGATIVE (NEGATIVE); KETONES,URINE NEGATIVE (NEGATIVE); LEUKOCYTE ESTERASE,URINE NEGATIVE (NEGATIVE); NITRITE,URINE NEGATIVE (NEGATIVE); PROTEIN,URINE NEGATIVE (NEGATIVE); URINE SPECIFIC GRAVITY 1.026; UROBILINOGEN,URINE NEGATIVE mg/dL (<2.0)
[2017-02-14 12:46] LABS: HEMATOCRIT 41.7 % (36.0-47.0); HEMOGLOBIN 13.5 g/dL (12.0-15.5); HGB HCT DIFFERENCE -1.2; MEAN CORPUSCULAR HEMOGLOBIN 29.3 pg (27.0-33.4); MEAN CORPUSCULAR HGB CONC 32.4 g/dL (32.0-36.0); MEAN CORPUSCULAR VOLUME 90 fl (80-97); RED BLOOD COUNT 4.61 10^6/uL (3.72-5.28); RED CELL DISTRIBUTION WIDTH 13.8 % (11.5-14.0); WHITE BLOOD COUNT 3.3 10^3/uL (4.0-10.5)
[2017-02-14 13:12] LABS: ALANINE AMINOTRANSFERASE 38 U/L (9-52); ALBUMIN 4.5 g/dL (3.5-5.0); ALKALINE PHOSPHATASE 68 U/L (38-126); ANION GAP 11 (5-19); ASPARTATE AMINO TRANSFERASE 26 U/L (14-36); BILIRUBIN,DIRECT 0.3 mg/dL (0.0-0.4); BILIRUBIN,TOTAL 1.2 mg/dL (0.2-1.3); BLOOD UREA NITROGEN 13 mg/dL (7-20); CALCIUM 9.4 mg/dL (8.4-10.2); CARBON DIOXIDE 27 mmol/L (22-30); CHLORIDE 103 mmol/L (98-107); CREATININE RESULT 0.71 mg/dL (0.52-1.25); GLUCOSE 89 mg/dL (75-110); POTASSIUM 4.2 mmol/L (3.6-5.0); SODIUM 141.1 mmol/L (137-145); TOTAL PROTEIN 7.8 g/dL (6.3-8.2)
[~2017-02-23 05:14] MED LIST changes: -ACETAMINOPHEN 325 MG TABLET PO PRN; -BUPIVACAINE HCL 0.25 % INJ/PF (2.5 MG/1 ML) 30 ML VIAL ONE; -LACTATED RINGERS 1000 ML IV PRN; +LIDOCAINE 0.5% INJ-PF (5 MG/ML) 50 ML SDV INJ PRN; -RINGERS SOLUTION,LACTATED 1,000 ML IV PRN
[2017-02-23] MEDS ORDERED: MIDAZOLAM 2 MG/2 ML INJ ONE (07:07)
[2017-02-23] MEDS ORDERED: FENTANYL CITRATE INJ/PF 250 MCG/5 ML AMPULE ONE (07:07)
[2017-02-23] MEDS ORDERED: LIDOCAINE 2% INJ-PF (20 MG/ML) 10 ML AMPUL ONE (07:07)
[2017-02-23] MEDS ORDERED: ONDANSETRON HCL INJ/PF 4 MG/2 ML SDV ONE (07:08)
[2017-02-23] MEDS ORDERED: DEXAMETHASONE SOD PHOSPHATE INJ 4 MG/1 ML VIAL ONE (07:08)
[2017-02-23] MEDS ORDERED: ACETAMINOPHEN 100 ML IV ONE (07:08)
[2017-02-23] MEDS ORDERED: PROPOFOL INJ 200 MG/20 ML VIAL IV ONE (07:08)
[2017-02-23] MEDS ORDERED: EPHEDRINE SULFATE INJ 50 MG/1 ML AMPULE ONE (07:08)
[2017-02-23] MEDS ORDERED: HYDROMORPHONE HCL INJ/PF 2 MG/ML AMPULE ONE (07:10)
[2017-02-23] MEDS ORDERED: OXYCODONE-ACETAMINOPHEN 5-325 MG TABLET PO PRN ×3 (07:52→16:34)
[2017-02-23] MEDS ORDERED: PROMETHAZINE HCL INJ 25 MG/1 ML VIAL IV PRN ×2 (07:52)
[2017-02-23] MEDS ORDERED: FENTANYL CITRATE INJ/PF 100 MCG/2 ML AMPUL IV PRN ×3 (07:52)
[2017-02-23] MEDS ORDERED: MEPERIDINE HCL/PF INJ 25 MG/1 ML DISP.SYRIN IV PRN (07:52)
[2017-02-23] MEDS ORDERED: MORPHINE SULFATE 10 MG/ML INJ IV PRN (07:52)
[2017-02-23] MEDS ORDERED: ONDANSETRON HCL INJ/PF 4 MG/2 ML SDV IV PRN ×2 (07:52→12:33)
[2017-02-23] MEDS ORDERED: DIPHENHYDRAMINE HCL 50 MG/ML VIAL IV PRN (07:52)
[2017-02-23] MEDS ORDERED: CEFAZOLIN INJ 1 GM VIAL ONE (08:04)
--- NOTE | 2017-02-23 10:24 | Operative Report ---
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 General anesthesia was induced. Her abdomen perineum and vagina were prepared and draped in sterile fashion. Her bladder was drained with a Martinez catheter. A vertical incision was made on her old scar. This was carried down the level of the fascia which was nicked in the midline. Fascial incision was extended superiorly and inferiorly. Peritoneum was elevated and incised into the abdominal cavity. The peritoneum incision was then incised superiorly and inferiorly taking care not to injure bladder. The Mobius retractor was then placed. The bowel was packed back using 3 moist lap sponges. The uterus was grasped with Cole thyroid clamp. The round ligaments were clamped cut and ligated using 0 Vicryl suture. The anterior leaf of the broad broad ligament was incised creating a bladder flap. As stated there were many dense adhesions over the anterior aspect of the uterus and cervix and the bladder and adhesions were taken off the uterus and cervix sharply with Metzenbaum scissors. There was no evidence of injury to the bladder. The utero-ovarian pedicles were isolated and then clamped ligated and cut using the LigaSure device. The tube was absent on the left side. The small distal fallopian tube on the right side was removed. The uterine arteries were skeletonized as much as possible however as stated previously she has very dilated vasculature in this area. The broad ligament had a lot of venous vasculature and this was taken down right next to the uterus using the LigaSure device to clamp and ligate and cut the broad ligament. As stated previously the bladder had been sharply dissected off the cervix and was well down in the pelvis. The uterine arteries were then clamped ligated and cut with the LigaSure device. Upon reaching the cardinal ligaments these were clamped with a straight Mike clamp cut and ligated with 0 Vicryl in a transfixation technique. Upon reaching the vaginal angles the vaginal angles were clamped with curved Mike clamp cut and ligated with a 0 Vicryl suture completing the vaginal angle bilaterally. Vaginal cuff was closed with a running locking layer of 0 Vicryl. Several small areas of bleeding overlying the bladder dissection were closed with [id number] sutures of 3-0 chromic suture provided good hemostasis. Some Surgicel was placed and then over top of this area Interceed was placed. This had been irrigated and suctioned free of fluid. The retractor and moist lap sponges were removed. The abdominal fascia and peritoneum were closed in a running bulk closure using a 0 Prolene loop. Closed both the peritoneum and the fascia. Subcu layer was closed with a 2 0 plain gut suture. Skin was closed with stainless steel skin tina. The wound was dressed. She was extubated in the OR taken to recovery in stable condition.
[2017-02-23] MEDS ORDERED: FENTANYL CITRATE INJ/PF 100 MCG/2 ML AMPUL ONE (10:30)
[2017-02-23] MEDS ORDERED: MORPHINE SULFATE 10 MG/ML INJ ONE (11:09)
[2017-02-23] MEDS ORDERED: KETOROLAC TROMETHAMINE 60 MG/2 ML SDV ONE (11:48)
[2017-02-23] MEDS ORDERED: NEOSTIGMINE METHYLSULFATE 10 MG/10 ML VIAL ONE (11:48)
[2017-02-23] MEDS ORDERED: GLYCOPYRROLATE INJ 0.4 MG/2 ML VIAL ONE (11:48)
[2017-02-23] MEDS ORDERED: VECURONIUM BROMIDE INJ 10 MG VIAL IV ONE (11:48)
[2017-02-23] MEDS ORDERED: SUCCINYLCHOLINE CHLORIDE INJ 200 MG/10 ML VIAL ONE (11:48)
[2017-02-23] MEDS ORDERED: HYDROMORPHONE HCL INJ/PF 2 MG/ML AMPULE IV PRN ×2 (12:33→12:34)
[2017-02-23] MEDS ORDERED: ALBUTEROL SULFATE HFA (90 MCG/PUFF) 8 GM MDI (1 MDI/ER DISP) IH PRN (14:39)
[2017-02-23 15:16] LABS: HEMATOCRIT 37.1 % (36.0-47.0); HEMOGLOBIN 12.3 g/dL (12.0-15.5); HGB HCT DIFFERENCE -0.2; MEAN CORPUSCULAR HEMOGLOBIN 29.8 pg (27.0-33.4); MEAN CORPUSCULAR HGB CONC 33.3 g/dL (32.0-36.0); MEAN CORPUSCULAR VOLUME 90 fl (80-97); RED BLOOD COUNT 4.14 10^6/uL (3.72-5.28); RED CELL DISTRIBUTION WIDTH 13.5 % (11.5-14.0); WHITE BLOOD COUNT 13.6 10^3/uL (4.0-10.5)
[2017-02-23 15:26] LABS: ANION GAP 12 (5-19); BLOOD UREA NITROGEN 10 mg/dL (7-20); CALCIUM 8.9 mg/dL (8.4-10.2); CARBON DIOXIDE 22 mmol/L (22-30); CHLORIDE 101 mmol/L (98-107); CREATININE RESULT 0.65 mg/dL (0.52-1.25); GLUCOSE 127 mg/dL (75-110); POTASSIUM 4.2 mmol/L (3.6-5.0); SODIUM 135.2 mmol/L (137-145)
[2017-02-23] MEDS ORDERED: DICYCLOMINE HCL 10 MG CAPSULE PO SCH (18:00)
[2017-02-23] MEDS ORDERED: LUBIPROSTONE 24 MCG CAPSULE PO SCH (18:00)
[2017-02-23] MEDS ORDERED: KETOROLAC TROMETHAMINE INJ/PF 30 MG/1 ML SDV IV SCH (22:00)
[2017-02-23] MEDS ORDERED: PROMETHAZINE HCL 25 MG SUPP.RECT PR PRN (22:22)
[2017-02-23] MEDS ORDERED: PROMETHAZINE HCL 25 MG SUPP.RECT PR ONE (22:40)
[2017-02-23] MEDS: DIAZEPAM 5 MG TABLET PO SCH (23:44)
[2017-02-23] MEDS: LUBIPROSTONE 24 MCG CAPSULE PO SCH (23:44)
[2017-02-23] MEDS: MONTELUKAST SODIUM 10 MG TABLET PO SCH (23:44)
[2017-02-23] MEDS: DICYCLOMINE HCL 10 MG CAPSULE PO SCH (23:44)
[2017-02-24] MEDS: RINGERS SOLUTION,LACTATED 1,000 ML IV PRN ×2 (01:34→21:50)
[2017-02-24] MEDS: DICYCLOMINE HCL 10 MG CAPSULE PO SCH ×3 (06:04→21:53)
[2017-02-24 06:52] LABS: ABSOLUTE LYMPHOCYTES (AUTO) 1.5 10^3/uL (0.5-4.7); ABSOLUTE MONOCYTES (AUTO) 0.8 10^3/uL (0.1-1.4); ABSOLUTE NEUT (AUTO) 6.6 10^3/uL (1.7-8.2); BASOPHILS % (AUTO) 0.2 % (0-2); EOSINOPHILS % (AUTO) 0.3 % (0-6); HEMATOCRIT 31.4 % (36.0-47.0); HEMOGLOBIN 10.7 g/dL (12.0-15.5); HGB HCT DIFFERENCE 0.7; LYMPHOCYTES % (AUTO) 16.8 % (13-45); MEAN CORPUSCULAR HEMOGLOBIN 30.6 pg (27.0-33.4); MEAN CORPUSCULAR HGB CONC 34.1 g/dL (32.0-36.0); MEAN CORPUSCULAR VOLUME 90 fl (80-97); RED BLOOD COUNT 3.51 10^6/uL (3.72-5.28); RED CELL DISTRIBUTION WIDTH 13.8 % (11.5-14.0); SEGMENTED NEUTROPHILS % (AUTO) 73.7 % (42-78); WHITE BLOOD COUNT 8.9 10^3/uL (4.0-10.5)
[2017-02-24 07:23] LABS: ANION GAP 9 (5-19); BLOOD UREA NITROGEN 10 mg/dL (7-20); CALCIUM 8.7 mg/dL (8.4-10.2); CARBON DIOXIDE 24 mmol/L (22-30); CHLORIDE 104 mmol/L (98-107); GLUCOSE 90 mg/dL (75-110); POTASSIUM 4.3 mmol/L (3.6-5.0); SODIUM 136.5 mmol/L (137-145)
--- NOTE | 2017-02-24 08:22 | PDOC PROGRESS REPORT ---
Subjective Progress Note for:: 02/24/17 Subjective:: She is having some pain today and doesnt want pain meds. I have encouraged her to try some pain medication this am. Physical Exam - Physical Exam Vital Signs: Temp Pulse Resp BP Pulse Ox 98.9 F 71 16 114/68 100 02/24/17 03:27 02/24/17 03:27 02/24/17 03:27 02/24/17 03:27 02/24/17 03:27 Intake & Output 02/23/17 02/24/17 02/25/17 06:59 06:59 06:59 Intake Total 0 2700 Output Total 1650 Balance 0 1050 Weight 68.04 kg General appearance: PRESENT: cooperative, mild distress - She is alert today. Some discomfort. Abd is not distended and faint bowel sounds are present. Ext are nontender. Result Laboratory Results: 02/24/17 06:42 02/24/17 06:42 02/23/17 02/23/17 02/24/17 15:09 15:09 06:42 WBC 13.6 H RBC 4.14 Hgb 12.3 Hct 37.1 MCV 90 MCH 29.8 MCHC 33.3 RDW 13.5 Plt Count 175 Seg Neutrophils % Lymphocytes % Monocytes % Eosinophils % Basophils % Absolute Neutrophils Absolute Lymphocytes Absolute Monocytes Absolute Eosinophils Absolute Basophils Sodium 135.2 L 136.5 L Potassium 4.2 4.3 Chloride 101 104 Carbon Dioxide 22 24 Anion Gap 12 9 BUN 10 10 Creatinine 0.65 0.80 Est GFR ( Amer) > 60 > 60 Est GFR (Non-Af Amer) > 60 > 60 Glucose 127 H 90 Calcium 8.9 8.7 02/24/17 06:42 WBC 8.9 RBC 3.51 L Hgb 10.7 L Hct 31.4 L MCV 90 MCH 30.6 MCHC 34.1 RDW 13.8 Plt Count 171 Seg Neutrophils % 73.7 Lymphocytes % 16.8 Monocytes % 9.0 Eosinophils % 0.3 Basophils % 0.2 Absolute Neutrophils 6.6 Absolute Lymphocytes 1.5 Absolute Monocytes 0.8 Absolute Eosinophils 0.0 Absolute Basophils 0.0 Sodium Potassium Chloride Carbon Dioxide Anion Gap BUN Creatinine Est GFR ( Amer) Est GFR (Non-Af Amer) Glucose Calcium Assessment & Plan - Diagnosis (3) Anemia Qualifiers: Anemia type: other cause Other causes of anemia: other cause, not classified Qualified Code(s): D64.89 - Other specified anemias Is this a current diagnosis for this admission?: NoPlan: Anemia is from blood loss during the hysterectomy. - Time Time Spent with patient: 15-24 minutes Medications reviewed and adjusted accordingly: Yes Anticipated discharge: Home Within: within 48 hours
[2017-02-24] MEDS: IBUPROFEN 800 MG TABLET PO SCH ×2 (09:24→21:48)
[2017-02-24] MEDS: DIAZEPAM 5 MG TABLET PO SCH (09:25)
[2017-02-24] MEDS: LUBIPROSTONE 24 MCG CAPSULE PO SCH ×2 (09:28→21:53)
[2017-02-24] MEDS ORDERED: BUDESONIDE IH SCH (10:00)
[2017-02-24] MEDS ORDERED: ALBUTEROL SULFATE HFA (90 MCG/PUFF) 200 PUFF/8.5 GM MDI IH PRN (14:50)
[2017-02-24] MEDS ORDERED: ONDANSETRON HCL INJ/PF 4 MG/2 ML SDV IV PRN (14:50)
[2017-02-24] MEDS: MORPHINE SULFATE 10 MG/ML INJ IV PRN ×2 (17:00→21:49)
[2017-02-24] MEDS: MONTELUKAST SODIUM 10 MG TABLET PO SCH (21:53)
[2017-02-25] MEDS: DICYCLOMINE HCL 10 MG CAPSULE PO SCH ×3 (05:56→22:02)
--- NOTE | 2017-02-25 08:24 | PDOC PROGRESS REPORT ---
Subjective Progress Note for:: 02/25/17 Subjective:: She has pain today and is not eating. She reports no vomiting. Physical Exam - Physical Exam Vital Signs: Temp Pulse Resp BP Pulse Ox 98.1 F 74 18 106/61 100 02/25/17 04:02 02/25/17 04:02 02/25/17 04:02 02/25/17 04:02 02/25/17 04:02 Intake & Output 02/24/17 02/25/17 02/26/17 06:59 06:59 06:59 Intake Total 2700 450 Output Total 1650 Balance 1050 450 General appearance: PRESENT: mild distress Head exam: PRESENT: atraumatic - Her abdomen is soft, there are occasional bowel sounds. The incision is intact. Ext are nontender. Neurological exam: PRESENT: alert, oriented to time, oriented to situation Skin exam: PRESENT: dry, intact, warm. ABSENT: cyanosis, rash Result Laboratory Results: 02/24/17 06:42 02/24/17 06:42 Assessment & Plan - Diagnosis (1) Pelvic pain Is this a current diagnosis for this admission?: Yes (3) Anemia Qualifiers: Anemia type: other cause Other causes of anemia: other cause, not classified Qualified Code(s): D64.89 - Other specified anemias Is this a current diagnosis for this admission?: No - Time Time Spent with patient: 15-24 minutes Medications reviewed and adjusted accordingly: Yes Anticipated discharge: Home Within: within 48 hours - We have to get her eating and drinking and taking oral pain meds - Inpatient Certification Medical Necessity: Need for Pain Control - Plan Summary Plan Summary: We will continue to work on pain control.
[2017-02-25] MEDS: MORPHINE SULFATE 10 MG/ML INJ IV PRN ×2 (08:34→22:00)
[2017-02-25] MEDS: IBUPROFEN 800 MG TABLET PO SCH ×2 (10:55→21:59)
[2017-02-25] MEDS: RINGERS SOLUTION,LACTATED 1,000 ML IV PRN (10:56)
[2017-02-25] MEDS: LUBIPROSTONE 24 MCG CAPSULE PO SCH ×2 (19:44→22:02)
[2017-02-25] MEDS: MONTELUKAST SODIUM 10 MG TABLET PO SCH (22:02)
[2017-02-26] MEDS: RINGERS SOLUTION,LACTATED 1,000 ML IV PRN (02:32)
[2017-02-26] MEDS: DICYCLOMINE HCL 10 MG CAPSULE PO SCH ×2 (05:55→13:25)
[2017-02-26 06:41] LABS: ALANINE AMINOTRANSFERASE 25 U/L (9-52); ALBUMIN 3.5 g/dL (3.5-5.0); ALKALINE PHOSPHATASE 53 U/L (38-126); ANION GAP 11 (5-19); ASPARTATE AMINO TRANSFERASE 27 U/L (14-36); BILIRUBIN,DIRECT 0.2 mg/dL (0.0-0.4); BILIRUBIN,TOTAL 1.2 mg/dL (0.2-1.3); BLOOD UREA NITROGEN 7 mg/dL (7-20); CALCIUM 8.6 mg/dL (8.4-10.2); CARBON DIOXIDE 27 mmol/L (22-30); CHLORIDE 102 mmol/L (98-107); CREATININE RESULT 0.77 mg/dL (0.52-1.25); GLUCOSE 80 mg/dL (75-110); POTASSIUM 4.3 mmol/L (3.6-5.0); SODIUM 139.5 mmol/L (137-145); TOTAL PROTEIN 6.3 g/dL (6.3-8.2)
--- NOTE | 2017-02-26 08:32 | PDOC PROGRESS REPORT ---
Subjective Subjective:: Pt reports "ok" benedict control, feels like she has the flu without the fever Reports emesis overnight, not witnessed by nursing staff, but no neasea No vaginal bleeding Physical Exam - Physical Exam Vital Signs: Temp Pulse Resp BP Pulse Ox 97.9 F 64 18 124/74 100 02/26/17 07:53 02/26/17 07:53 02/26/17 07:53 02/26/17 07:53 02/26/17 07:53 Intake & Output 02/25/17 02/26/17 02/27/17 06:59 06:59 06:59 Intake Total 450 600 Balance 450 600 General appearance: PRESENT: no acute distress, cooperative, well-developed GI/Abdominal exam: PRESENT: normal bowel sounds, soft - Incision Bandage is clean/dry/intact Result Laboratory Results: 02/24/17 06:42 02/26/17 06:06 02/26/17 06:06 Sodium 139.5 Potassium 4.3 Chloride 102 Carbon Dioxide 27 Anion Gap 11 BUN 7 Creatinine 0.77 Est GFR ( Amer) > 60 Est GFR (Non-Af Amer) > 60 Glucose 80 Calcium 8.6 Total Bilirubin 1.2 AST 27 ALT 25 Alkaline Phosphatase 53 Total Protein 6.3 Albumin 3.5 Assessment & Plan - Diagnosis (1) Anemia Qualifiers: Anemia type: other cause Other causes of anemia: other cause, not classified Qualified Code(s): D64.89 - Other specified anemias Is this a current diagnosis for this admission?: Yes (2) Pelvic congestion syndrome Is this a current diagnosis for this admission?: Yes (3) Pelvic pain Is this a current diagnosis for this admission?: Yes - Time Time Spent with patient: Less than 15 minutes Medications reviewed and adjusted accordingly: Yes Anticipated discharge: Home Within: within 48 hours - Will contiue to slowly advance diet and try to gain better pain control via po medication
[2017-02-26] MEDS: IBUPROFEN 800 MG TABLET PO SCH ×2 (09:43→22:11)
[2017-02-26] MEDS: LUBIPROSTONE 24 MCG CAPSULE PO SCH (09:45)
[2017-02-26 13:37] LABS: ABSOLUTE EOSINOPHILS # (AUTO) 0.1 10^3/uL (0.0-0.6); ABSOLUTE LYMPHOCYTES (AUTO) 1.3 10^3/uL (0.5-4.7); ABSOLUTE MONOCYTES (AUTO) 0.7 10^3/uL (0.1-1.4); ABSOLUTE NEUT (AUTO) 2.4 10^3/uL (1.7-8.2); BASOPHILS % (AUTO) 0.6 % (0-2); EOSINOPHILS % (AUTO) 2.9 % (0-6); HEMATOCRIT 31.2 % (36.0-47.0); HEMOGLOBIN 10.4 g/dL (12.0-15.5); LYMPHOCYTES % (AUTO) 28.7 % (13-45); MEAN CORPUSCULAR HEMOGLOBIN 30.2 pg (27.0-33.4); MEAN CORPUSCULAR HGB CONC 33.2 g/dL (32.0-36.0); MEAN CORPUSCULAR VOLUME 91 fl (80-97); MONOCYTES % (AUTO) 14.8 % (3-13); RED BLOOD COUNT 3.44 10^6/uL (3.72-5.28); RED CELL DISTRIBUTION WIDTH 13.7 % (11.5-14.0); WHITE BLOOD COUNT 4.4 10^3/uL (4.0-10.5)
[2017-02-26] MEDS: MORPHINE SULFATE 10 MG/ML INJ IV PRN (13:48)
[2017-02-26] MEDS: OXYCODONE-ACETAMINOPHEN 5-325 MG TABLET PO PRN (20:06)
[2017-02-26] MEDS ORDERED: ZOLPIDEM TARTRATE 5 MG TABLET PO ONE (21:15)
[2017-02-27] MEDS: DICYCLOMINE HCL 10 MG CAPSULE PO SCH ×4 (00:28→22:42)
[2017-02-27] MEDS: LUBIPROSTONE 24 MCG CAPSULE PO SCH ×3 (00:28→22:42)
[2017-02-27] MEDS: MONTELUKAST SODIUM 10 MG TABLET PO SCH ×2 (00:28→22:42)
--- NOTE | 2017-02-27 09:09 | PDOC PROGRESS REPORT ---
Subjective Progress Note for:: 02/27/17 Subjective:: Pt states no flatus yet. States vomiting but nurses have not witnessed any emesis. Physical Exam - Physical Exam Vital Signs: Temp Pulse Resp BP Pulse Ox 98.6 F 82 16 118/76 100 02/27/17 07:39 02/27/17 07:39 02/27/17 07:39 02/27/17 07:39 02/27/17 07:39 Intake & Output 02/26/17 02/27/17 02/28/17 06:59 06:59 06:59 Intake Total 600 600 Balance 600 600 General appearance: PRESENT: no acute distress - abdomen soft, slightly decreased bowel sounds, normal post op tenderness Extremities exam: PRESENT: full ROM. ABSENT: calf tenderness, clubbing, pedal edema Result Laboratory Results: 02/26/17 06:06 02/26/17 06:06 02/26/17 06:06 WBC 4.4 RBC 3.44 L Hgb 10.4 L Hct 31.2 L MCV 91 MCH 30.2 MCHC 33.2 RDW 13.7 Plt Count 171 Seg Neutrophils % 53.0 Lymphocytes % 28.7 Monocytes % 14.8 H Eosinophils % 2.9 Basophils % 0.6 Absolute Neutrophils 2.4 Absolute Lymphocytes 1.3 Absolute Monocytes 0.7 Absolute Eosinophils 0.1 Absolute Basophils 0.0 Assessment & Plan - Diagnosis (1) Pelvic pain Is this a current diagnosis for this admission?: YesPlan: dulcolax suppository now. If not passing flatus after this, check abd series to r/o ileus and restart iv
[2017-02-27] MEDS ORDERED: BISACODYL 10 MG SUPP.RECT PR ONE (10:00)
[2017-02-27] MEDS: IBUPROFEN 800 MG TABLET PO SCH ×2 (11:15→22:58)
[2017-02-27] MEDS: OXYCODONE-ACETAMINOPHEN 5-325 MG TABLET PO PRN ×2 (14:28→21:54)
--- NOTE | 2017-02-27 14:28 | RADIOLOGY REPORT (SQ) ---
EXAM DESCRIPTION: ACUTE ABDOMEN SERIES COMPLETED DATE/TIME: 02/27/2017 2:20 pm REASON FOR STUDY: rule out ileus N94.89 [facility] W FEMALE GENITAL ORGANS AND MENSTRUAL COMPARISON: None. NUMBER OF VIEWS: Three views. TECHNIQUE: Frontal chest, supine abdomen and upright/decubitus abdomen radiographic images acquired. LIMITATIONS: None. FINDINGS: CHEST: Lungs clear of infiltrates. FREE AIR: None. No abnormal gas collections. BOWEL GAS PATTERN: Nonobstructive pattern. No dilated loops or air fluid levels. CALCIFICATIONS: No suspicious calcifications. HARDWARE: Clips right upper quadrant. Skin tina lower abdomen and pelvis. SOFT TISSUES: No gross mass or suggestion of organomegaly. BONES: No acute fracture. No worrisome bone lesions. OTHER: No other significant finding. IMPRESSION: NO RADIOGRAPHIC EVIDENCE FOR ACUTE ABDOMINAL DISEASE. TECHNICAL DOCUMENTATION: JOB ID: [id number] [employer]- All Rights Reserved
[2017-02-27] MEDS ORDERED: ZOLPIDEM TARTRATE 5 MG TABLET PO ONE (23:00)
[2017-02-28] MEDS: OXYCODONE-ACETAMINOPHEN 5-325 MG TABLET PO PRN (04:14)
[2017-02-28 06:04] LABS: HEMATOCRIT 34.8 % (36.0-47.0); HGB HCT DIFFERENCE 1.2; MEAN CORPUSCULAR HGB CONC 34.4 g/dL (32.0-36.0); MEAN CORPUSCULAR VOLUME 90 fl (80-97); RED BLOOD COUNT 3.86 10^6/uL (3.72-5.28); RED CELL DISTRIBUTION WIDTH 13.2 % (11.5-14.0); WHITE BLOOD COUNT 4.1 10^3/uL (4.0-10.5)
[2017-02-28 06:25] LABS: ALANINE AMINOTRANSFERASE 34 U/L (9-52); ALBUMIN 3.8 g/dL (3.5-5.0); ALKALINE PHOSPHATASE 57 U/L (38-126); ANION GAP 10 (5-19); ASPARTATE AMINO TRANSFERASE 23 U/L (14-36); BILIRUBIN,DIRECT 0.4 mg/dL (0.0-0.4); BILIRUBIN,TOTAL 1.3 mg/dL (0.2-1.3); BLOOD UREA NITROGEN 9 mg/dL (7-20); CALCIUM 9.1 mg/dL (8.4-10.2); CARBON DIOXIDE 26 mmol/L (22-30); CHLORIDE 101 mmol/L (98-107); CREATININE RESULT 0.88 mg/dL (0.52-1.25); GLUCOSE 91 mg/dL (75-110); POTASSIUM 4.2 mmol/L (3.6-5.0); SODIUM 137.2 mmol/L (137-145); TOTAL PROTEIN 6.8 g/dL (6.3-8.2)
[2017-02-28] MEDS: DICYCLOMINE HCL 10 MG CAPSULE PO SCH ×2 (07:31→14:06)
[2017-02-28] MEDS: IBUPROFEN 800 MG TABLET PO SCH (09:36)
[2017-02-28] MEDS: LUBIPROSTONE 24 MCG CAPSULE PO SCH (09:38)
[2017-02-28 12:19] VITALS: BP 119/79
--- NOTE | 2017-02-28 12:25 | PDOC DISCHARGE SUMMARY ---
General - Admit/Disc Date/PCP Admission Date/Primary Care Provider: 02/23/17 05:14 ANGEL GAMBLE MD Patient states she is doing well today and is ready to go home at this time. He was admitted last week for abdominal hysterectomy. She is now passing gas and tolerating food. She is tolerating oral pain medicine. She has a strong desire to go home today and states she is feeling better. Discharge Date: 02/28/17 - Discharge Diagnosis (1) Pelvic pain Is this a current diagnosis for this admission?: Yes (2) Pelvic congestion syndrome Is this a current diagnosis for this admission?: Yes (3) Anemia Is this a current diagnosis for this admission?: Yes - Additional Information Home Medications: Albuterol Sulfate [Proair HFA] 1 puff IH Q4HP PRN 02/23/17 Budesonide [Pulmicort 90 mcg Flexhaler] 1 puff IH DAILY 02/23/17 Diazepam [Valium] 10 mg PO Q12 02/23/17 Dicyclomine HCl [Bentyl 10 mg Capsule] 10 mg PO TID 02/23/17 Esomeprazole Magnesium [Nexium] 40 mg PO DAILY 02/23/17 Hydrocodone Bit/Acetaminophen [Hydrocodon-Acetaminophn 10-325] 1 tab PO Q6HP PRN 02/23/17 Ibuprofen [Motrin 800 mg Tablet] 800 mg PO Q8HP PRN 02/23/17 Lubiprostone [Amitiza 24 Mcg Capsule] 24 mcg PO BID 02/23/17 Montelukast Sodium [Singulair 10 mg Tablet] 10 mg PO QHS 02/23/17 History of Present Illness History of Present Illness: MADELINE MENON is a 46 year old female Hospital Course Hospital Course: She was admitted for hysterectomy last week. Her postoperative course was complicated by some reluctance to take pain medication however she is taking Percocet now. She has complained of some nausea however this is not been witnessed. Her labs look good today her acute abdominal series was normal yesterday. Today she feels much better and wishes to go home. I will see her in the office later in the week to remove her tina. Physical Exam - Physical Exam Vital Signs: Temp Pulse Resp BP Pulse Ox 98.8 F 66 18 119/79 99 02/28/17 11:16 02/28/17 11:16 02/28/17 11:16 02/28/17 11:16 02/28/17 11:16 Intake & Output 02/27/17 02/28/17 03/01/17 06:59 06:59 06:59 Intake Total 600 480 Balance 600 480 General appearance: PRESENT: no acute distress, well-developed, well-nourished Head exam: PRESENT: atraumatic, normocephalic GI/Abdominal exam: PRESENT: soft - Expected incisional tenderness. The dressing is dry. Has positive bowel sounds. Result Laboratory Results: 02/28/17 05:45 02/28/17 05:45 02/28/17 02/28/17 05:45 05:45 WBC 4.1 RBC 3.86 Hgb 12.0 Hct 34.8 L MCV 90 MCH 31.0 MCHC 34.4 RDW 13.2 Plt Count 201 Sodium 137.2 Potassium 4.2 Chloride 101 Carbon Dioxide 26 Anion Gap 10 BUN 9 Creatinine 0.88 Est GFR ( Amer) > 60 Est GFR (Non-Af Amer) > 60 Glucose 91 Calcium 9.1 Total Bilirubin 1.3 AST 23 ALT 34 Alkaline Phosphatase 57 Total Protein 6.8 Albumin 3.8 Impressions: Acute Abdomen Series 02/27/17 12:55 IMPRESSION: NO RADIOGRAPHIC EVIDENCE FOR ACUTE ABDOMINAL DISEASE. Plan Discharge Plan: Discharge plan is home to rest. Follow-up later this week. Discharge medication is Percocet. No lifting or straining. Pelvic rest Time Spent: Greater than 30 Minutes
== END 2017-02-28 14:18 | disposition home or self-care (01) | DRG 743 ==
LOC: INOR 05:14 → 2N 11:52
PROVIDERS: ADMIT Obstetrics & Gynecology; ATTEND Obstetrics & Gynecology
PROC: 0UTC0ZZ Resection of Cervix, Open Approach (ICD-10-PCS; 2017-02-23)
PROC: 0UT90ZZ Resection of Uterus, Open Approach (ICD-10-PCS; principal; 2017-02-23 07:30)
DX: N94.89 Other specified conditions associated with female genital organs and menstrual cycle (principal); R10.2 Pelvic and perineal pain; D64.89 Other specified anemias; Z79.899 Other long term (current) drug therapy
CPT/HCPCS: 36415; 74022; 80048; 80053; 81001; 81025; 82962; 840; 85025; 85027; 86850; 86900; 86901; 88307; C1765; J0131; J0330; J0690; J1100; J1170; J1885; J2250; J2270; J2405; J2704; J3010; J3490; J7120

== ENCOUNTER 2017-05-07 09:06 | Emergency (ER) | payer MEDICARE ==
--- NOTE | 2017-05-07 09:33 | ER Document Report ---
ED General - General Chief Complaint: Abdominal Pain Stated Complaint: ABDOMINAL PAIN Time Seen by Provider: 05/07/17 09:23 Mode of Arrival: Ambulatory Information source: Patient Notes: 46-year-old female presents with complaints of 2 month duration of abdominal pain since her hysterectomy. Patient notes she thinks there is a piece of wood or a pen stuck in her. Patient notes that the pain is on the scar tissue from the incision. Patient states she has watched the show monsters inside of me and believes there are things inside of her Patient states her abdominal pain makes her have headaches right-sided pain right leg pain TRAVEL OUTSIDE OF THE [place] 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 for 2 months Recently seen / treated by doctor: Yes - Related Data Allergies/Adverse Reactions: iodipamide sodium [Iodipamide Sodium] Allergy (Severe, Verified 02/08/17 13:47) RESP DISTRESS IVP dye Allergy (Severe, Uncoded 02/08/17 13:47) resp distress Past Medical History - Social History Smoking Status: Never Smoker Cigarette use (# per day): No Chew tobacco use (# tins/day): No Smoking Education Provided: No Frequency of alcohol use: None Drug Abuse: None Family History: Reviewed & Not Pertinent - Past Medical History Cardiac Medical History: Denies: Hx Coronary Artery Disease, Hx Heart Attack, Hx Hypertension Pulmonary Medical History: Reports: Hx Asthma - MILD Denies: Hx Bronchitis, Hx COPD, Hx Pneumonia Neurological Medical History: Reports: Hx Migraine. Denies: Hx Cerebrovascular Accident, Hx Seizures Renal/ Medical History: Reports: Hx Kidney Stones. Denies: Hx Peritoneal Dialysis GI Medical History: Reports: Hx Gastroesophageal Reflux Disease. 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 Denies: Hx Hysterectomy, Hx Mastectomy, Hx Open Heart Surgery, Hx Pacemaker - Immunizations Hx Diphtheria, Pertussis, Tetanus Vaccination: Yes Review of Systems - Review of Systems Notes: REVIEW OF SYSTEMS: CONSTITUTIONAL : Denies fever, chills, or sweats. Denies recent illness. EENT: Denies eye, ear, throat, or mouth pain or symptoms. Denies nasal or sinus congestion or discharge. Denies throat, tongue, or mouth swelling or difficulty swallowing. CARDIOVASCULAR: Denies chest pain. Denies palpitations or racing or irregular heart beat. Denies ankle edema. RESPIRATORY: Denies cough, cold, or chest congestion. Denies shortness of breath, difficulty breathing, or wheezing. GASTROINTESTINAL: Admits to suprapubic pain incision site right lower quadrant pain incision site right upper quadrant pain incision site GENITOURINARY: Denies difficulty urinating, painful urination, burning, frequency, blood in urine, or discharge. FEMALE GENITOURINARY: Denies vaginal bleeding, heavy or abnormal periods, irregular periods. Denies vaginal discharge or odor. MUSCULOSKELETAL: Admits to right leg pain. SKIN: Denies rash, lesions or sores. HEMATOLOGIC : Denies easy bruising or bleeding. LYMPHATIC: Denies swollen, enlarged glands. NEUROLOGICAL: Admits to headache PSYCHIATRIC: Admits to anxiety ALL OTHER SYSTEMS REVIEWED AND NEGATIVE. PHYSICAL EXAMINATION: GENERAL: Well-appearing, well-nourished and in no acute distress. HEAD: Atraumatic, normocephalic. EYES: Pupils equal round and reactive to light, extraocular movements intact, conjunctiva are normal. ENT: Nares patent, oropharynx clear without exudates. Moist mucous membranes. NECK: Normal range of motion, supple without lymphadenopathy LUNGS: Breath sounds clear to auscultation bilaterally and equal. No wheezes rales or rhonchi. HEART: Regular rate and rhythm without murmurs ABDOMEN: Soft, nontender, nondistended abdomen. No guarding, no rebound. No masses appreciated. I palpated her complete abdomen there are no foreign bodies no pieces of wood no pains that I can palpate. Patient's tenderness is at the incision sites Female : deferred Musculoskeletal: Normal range of motion, no pitting or edema. No cyanosis. NEUROLOGICAL: Cranial nerves grossly intact. Normal speech, normal gait. Normal sensory, motor exams PSYCH: Patient appears quite anxious SKIN: Warm, Dry, normal turgor, no rashes or lesions noted. Dictation was performed using Ud[employer] voice recognition software Course - Re-evaluation Re-evalutation: 05/07/17 09:41 There is no sign of infectious process, patient's vital signs are stable, she has no tenderness anywhere else in her abdomen, she appears quite anxious regarding her concerns since watching this show. Patient has been instructed that she must follow-up with her [employer] SALES REPRESENTATIVE for further care but at this time the only way to evaluate for her scar tissue is for surgical procedure which the patient defers at this time After performing a Medical Screening Examination, I estimate there is LOW risk for ACUTE APPENDICITIS, BOWEL OBSTRUCTION, ACUTE CHOLECYSTITIS, PERFORATED DIVERTICULITIS, INCARCERATED HERNIA, PANCREATITIS, PELVIC INFLAMMATORY DISEASE, PERFORATED ULCER, ECTOPIC , or TUBO-OVARIAN ABSCESS, thus I consider the discharge disposition reasonable. Also, there is no evidence or peritonitis , sepsis, or toxicity. I have reevaluated this patient multiple times and no significant life threatening changes are noted. The patient and I have discussed the diagnosis and risks, and we agree with discharging home with close follow-up with the understanding that symptoms and presentations can change. We also discussed returning to the Emergency Department immediately if new or worsening symptoms occur. We have discussed the symptoms which are most concerning (e.g., bloody stool, fever, changing or worsening pain, vomiting) that necessitate immediate return. Discharge - Discharge Clinical Impression: Adhesion of abdominal wall Abdominal pain Qualifiers: Abdominal location: generalized Qualified Code(s): R10.84 - Generalized abdominal pain Condition: Stable Disposition: HOME, SELF-CARE Instructions: Abdominal Pain ([facility]) Referrals: JIMMIE MCDONOUGH MD [ACTIVE STAFF] - Follow up tomorrow
== END 2017-05-07 09:36 | disposition home or self-care (01) ==
LOC: ER 09:06
DX: K66.0 Peritoneal adhesions (postprocedural) (postinfection) (principal); R10.84 Generalized abdominal pain; Z98.890 Other specified postprocedural states
CPT/HCPCS: 99283

== ENCOUNTER → 2017-09-12 | Outpatient (CLI) | payer MEDICARE, OTHER ==
[2017-09-13 06:39] LABS: THYROXINE (T4) 8.7 ug/dL (4.5-12.0)
[2017-09-13 07:15] LABS: TRIIODOTHYRONINE (T3) 107 ng/dL (71-180)
[2017-09-13 14:00] LABS: LYME DISEASE IGM AB <0.80 index (0.00-0.79)
[2017-09-14 07:42] LABS: ENDOMYSIAL ANTIBODY IGA Negative (Negative)
[2017-09-14 08:18] LABS: DEAMIDATED GLIADIN IGA AB 3 units (0-19); DEAMIDATED GLIADIN IGG AB 3 units (0-19); T-TRANSGLUTAMINASE (TTG) IGA <2 U/mL (0-3); T-TRANSGLUTAMINASE (TTG) IGG <2 U/mL (0-5)
[2017-09-14 15:17] LABS: ARSENIC (TOTAL) UR 108 ug/L (0-50)
[2017-09-14 15:18] LABS: ARSENIC(INORGANIC) UR None Detected ug/L (0-19); CADMIUM UR 1.3 ug/L (None detected); CADMIUM/CREAT RATIO UR 0.6 ug/g creat (0.0-1.9); LEAD UR None Detected ug/L (0-49); MERCURY UR None Detected ug/L (0-19)
== END ==
LOC: OD 13:57
PROVIDERS: ATTEND Specialist
DX: E53.8 Deficiency of other specified B group vitamins (principal); A69.20 Lyme disease, unspecified; E11.40 Type 2 diabetes mellitus with diabetic neuropathy, unspecified
CPT/HCPCS: 36415; 82175; 82607; 83036; 83520; 83655; 83825; 84436; 84443; 84480; 85652; 86038; 86617; 86618

== ENCOUNTER 2017-11-06 20:03 | Emergency (ER) | payer MEDICARE, OTHER ==
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
[2017-11-06] MEDS ORDERED: DEXAMETHASONE SOD PHOS INJ 10 MG/1 ML VIAL IM ONE (21:54)
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
[2017-11-06 22:15] VITALS: BP 118/88
== END 2017-11-06 22:15 | disposition home or self-care (01) ==
LOC: ER 20:03
DX: M54.2 Cervicalgia (principal); R51 Headache; M79.604 Pain in right leg; V43.52XA Car driver injured in collision with other type car in traffic accident, initial encounter; F41.9 Anxiety disorder, unspecified
CPT/HCPCS: 99284; 96372; 82962; J1100

== ENCOUNTER 2017-11-08 11:48 | Emergency (ER) | payer MEDICARE, OTHER ==
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
[2017-11-08] MEDS ORDERED: LIDOCAINE 5% (700 MG) TRANSDERMAL ADH..PATCH TP ONE (15:21)
[2017-11-08] MEDS ORDERED: DIPHENHYDRAMINE HCL 50 MG CAPSULE PO ONE (15:55)
[2017-11-08] MEDS ORDERED: PROCHLORPERAZINE MALEATE 10 MG TABLET PO ONE (15:55)
[2017-11-08] MEDS ORDERED: ACETAMINOPHEN 325 MG TABLET PO ONE (15:55)
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
[2017-11-08 17:47] VITALS: BP 125/81
== END 2017-11-08 17:48 | disposition home or self-care (01) ==
LOC: ER 11:48
DX: S39.012A Strain of muscle, fascia and tendon of lower back, initial encounter (principal); S16.1XXA Strain of muscle, fascia and tendon at neck level, initial encounter; R51 Headache; V49.9XXA Car occupant (driver) (passenger) injured in unspecified traffic accident, initial encounter; Z87.442 Personal history of urinary calculi; Z90.49 Acquired absence of other specified parts of digestive tract; Z98.51 Tubal ligation status
CPT/HCPCS: 99284; 82962; 72082; 70450; A9270 ×3; S0183

== ENCOUNTER 2017-11-10 18:55 | Emergency (ER) | payer MEDICARE, OTHER ==
[2017-11-10] MEDS ORDERED: ZIPRASIDONE HCL 40 MG CAPSULE PO ONE (19:59)
[2017-11-10] MEDS ORDERED: DIAZEPAM 5 MG TABLET PO ONE (19:59)
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
[2017-11-10 20:44] LABS: ABSOLUTE EOSINOPHILS # (AUTO) 0.1 10^3/uL (0.0-0.6); ABSOLUTE LYMPHOCYTES (AUTO) 1.4 10^3/uL (0.5-4.7); ABSOLUTE MONOCYTES (AUTO) 0.5 10^3/uL (0.1-1.4); ABSOLUTE NEUT (AUTO) 5.3 10^3/uL (1.7-8.2); BASOPHILS % (AUTO) 0.1 % (0-2); EOSINOPHILS % (AUTO) 0.8 % (0-6); HEMATOCRIT 44.9 % (36.0-47.0); HEMOGLOBIN 14.9 g/dL (12.0-15.5); LYMPHOCYTES % (AUTO) 19.2 % (13-45); MEAN CORPUSCULAR HEMOGLOBIN 29.8 pg (27.0-33.4); MEAN CORPUSCULAR HGB CONC 33.2 g/dL (32.0-36.0); MEAN CORPUSCULAR VOLUME 90 fl (80-97); PLATELET COUNT 280 10^3/uL (150-450); RED BLOOD COUNT 5.01 10^6/uL (3.72-5.28); RED CELL DISTRIBUTION WIDTH 13.2 % (11.5-14.0); SEGMENTED NEUTROPHILS % (AUTO) 72.9 % (42-78); TOTAL CELLS COUNTED % (AUTO) 100 %; WHITE BLOOD COUNT 7.3 10^3/uL (4.0-10.5)
[2017-11-10 21:02] VITALS: BP 129/91
[2017-11-10 21:04] LABS: ALANINE AMINOTRANSFERASE 30 U/L (9-52); ALBUMIN 5.3 g/dL (3.5-5.0); ALKALINE PHOSPHATASE 73 U/L (38-126); ANION GAP 18 (5-19); ASPARTATE AMINO TRANSFERASE 32 U/L (14-36); BILIRUBIN,DIRECT 0.4 mg/dL (0.0-0.4); BILIRUBIN,TOTAL 1.7 mg/dL (0.2-1.3); BLOOD UREA NITROGEN 21 mg/dL (7-20); CALCIUM 10.4 mg/dL (8.4-10.2); CARBON DIOXIDE 25 mmol/L (22-30); CHLORIDE 103 mmol/L (98-107); GLUCOSE 99 mg/dL (75-110); SODIUM 145.5 mmol/L (137-145); TOTAL PROTEIN 8.8 g/dL (6.3-8.2)
[2017-11-10 21:05] LABS: ACETAMINOPHEN < 10 ug/mL (10-30); ALCOHOL < 10 mg/dL (NONE DETECTED); SALICYLATE < 1.0 mg/dL (2.0-20.0)
[2017-11-10 21:49] LABS: APPEARANCE,URINE CLEAR; BILIRUBIN,URINE NEGATIVE (NEGATIVE); COLOR,URINE STRAW; GLUCOSE, URINE NEGATIVE (NEGATIVE); KETONES,URINE TRACE mg/dL (NEGATIVE); LEUKOCYTE ESTERASE,URINE NEGATIVE (NEGATIVE); NITRITE,URINE NEGATIVE (NEGATIVE); PROTEIN,URINE NEGATIVE (NEGATIVE); URINE SPECIFIC GRAVITY 1.006; UROBILINOGEN,URINE NEGATIVE mg/dL (<2.0)
[2017-11-10 21:57] LABS: URINE AMPHETAMINES SCREEN NEGATIVE; URINE BARBITURATES SCREEN NEGATIVE; URINE BENZODIAZEPINES SCREEN UNCONFIRMED POSITIVE; URINE COCAINE SCREEN NEGATIVE; URINE MARIJUANA (THC) SCREEN NEGATIVE; URINE METHADONE SCREEN NEGATIVE; URINE PHENCYCLIDINE SCREEN NEGATIVE
[2017-11-10] MEDS ORDERED: ZIPRASIDONE MESYLATE INJ/PF 20 MG SDV IM ONE (23:33)
--- NOTE | 2017-11-11 07:53 | EKG REPORT ---
SEVERITY:- DEFECTIVE ECG - SINUS TACHYCARDIA LEFT VENTRICULAR HYPERTROPHY SEVERE BASELINE TREMORS : Confirmed by: Jerel Wilder MD 11-Nov-2017 07:53:22
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
[2017-11-11] MEDS ORDERED: NORMAL SALINE 1000 ML 1,000 ML IV ONE (09:22)
--- NOTE | 2017-11-11 11:38 | RADIOLOGY REPORT (SQ) ---
EXAM DESCRIPTION: KNEE RIGHT 4 VIEWS COMPLETED DATE/TIME: 11/11/2017 11:05 am REASON FOR STUDY: fracture COMPARISON: None. NUMBER OF VIEWS: Four views. TECHNIQUE: AP, lateral, and both oblique radiographic images acquired of the right knee. LIMITATIONS: None. FINDINGS: MINERALIZATION: Normal. BONES: No acute fracture or dislocation. No worrisome bone lesions. JOINT: No effusion. SOFT TISSUES: No soft tissue swelling. No radio-opaque foreign body. OTHER: No other significant finding. IMPRESSION: NEGATIVE STUDY OF THE RIGHT KNEE. NO RADIOGRAPHIC EVIDENCE OF ACUTE INJURY. TECHNICAL DOCUMENTATION: JOB ID: [id number] [employer]- All Rights Reserved Reading location - IP/workstation name: [email or web address]
--- NOTE | 2017-11-11 11:41 | RADIOLOGY REPORT (SQ) ---
EXAM DESCRIPTION: T SPINE AP/LAT COMPLETED DATE/TIME: 11/11/2017 11:05 am REASON FOR STUDY: fracture COMPARISON: None. NUMBER OF VIEWS: Two views. TECHNIQUE: AP and lateral radiographic images acquired of the thoracic spine. LIMITATIONS: None. FINDINGS: MINERALIZATION: Normal. ALIGNMENT: Normal. No scoliosis. VERTEBRAE: No fracture or bone lesion. Maintained height, normal segmentation. DISCS: No significant loss of height or significant narrowing. Osteophytic lipping is identified at multiple levels HARDWARE: None in the spine. MEDIASTINUM AND SOFT TISSUES: Normal heart size and aortic contour. No soft tissue abnormality. VISUALIZED LUNG TIM: Clear. OTHER: No other significant finding. IMPRESSION: No significant vertebral compression or disc space reduction is seen. Osteophytic lippi ng is identified at multiple levels. TECHNICAL DOCUMENTATION: JOB ID: [id number] [employer]- All Rights Reserved Reading location - IP/workstation name: [email or web address]
--- NOTE | 2017-11-11 11:45 | RADIOLOGY REPORT (SQ) ---
EXAM DESCRIPTION: L SPINE 2 VIEWS COMPLETED DATE/TIME: 11/11/2017 11:05 am REASON FOR STUDY: fracture COMPARISON: Plain films dated September [address] scan dated September 2016 NUMBER OF VIEWS: Two views. TECHNIQUE: AP and lateral radiographic images acquired of the lumbar spine. LIMITATIONS: None. FINDINGS: MINERALIZATION: Normal. SEGMENTATION: Normal. No transitional anatomy. ALIGNMENT: Normal. VERTEBRAE: Maintained height. No fracture or worrisome bone lesion. DISCS: Preserved height. Minimal anterior osteophytic lipping is identified P POSTERIOR ELEMENTS: Pedicles and facets are intact. No pars defect or posterior arch defects. HARDWARE: None in the spine. PARASPINAL SOFT TISSUES: Normal. PELVIS: Intact as visualized. No fractures or worrisome bone lesions. SI joints intact. OTHER: Small calcific density is identified overlying the right renal contour consistent with a renal calculus which was present on the previous CT scan IMPRESSION: Minimal degenerative changes as noted above. Other findings as noted above. TECHNICAL DOCUMENTATION: JOB ID: [id number] [employer]- All Rights Reserved Reading location - IP/workstation name: [email or web address]
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
== END 2017-11-11 15:00 | disposition home or self-care (01) ==
LOC: ER 18:55
DX: F06.8 Other specified mental disorders due to known physiological condition (principal); F19.950 Other psychoactive substance use, unspecified with psychoactive substance-induced psychotic disorder with delusions; F41.0 Panic disorder [episodic paroxysmal anxiety]
CPT/HCPCS: 93005; 99285; 96372; 36415; 80307 ×4; 84703; 85025; 80053; 81001; 73564; 72100; 72070; 93010; J3486

== ENCOUNTER 2017-12-17 09:35 | Emergency (ER) | payer MEDICARE, OTHER ==
--- NOTE | 2017-12-17 10:02 | ER Document Report ---
ED Medical Screen (RME) - General Chief Complaint: Abdominal Pain Stated Complaint: ABDOMINAL PAIN Time Seen by Provider: 12/17/17 09:47 Notes: 47-year-old female status post cholecystectomy and total abdominal hysterectomy one year ago presents to the emergency department stating that she think she has appendicitis. Patient has been having right lower quadrant abdominal pain since 11/06/2017. States she has been having nausea, subjective fevers and loss of appetite. States that she stopped eating approximately a month ago and has lost 30 pounds, states she started eating again 3 weeks ago yet is still nauseated and having pain. Patient states she looked up her symptoms online and thinks she has early appendicitis. TRAVEL OUTSIDE OF THE [place] IN LAST 30 DAYS: No - Related Data Allergies/Adverse Reactions: iodipamide sodium [Iodipamide Sodium] Allergy (Severe, Verified 12/17/17 09:54) RESP DISTRESS IVP dye Allergy (Severe, Uncoded 12/17/17 09:54) resp distress Past Medical History - General Information source: Patient - Social History Cigarette use (# per day): No Chew tobacco use (# tins/day): No Frequency of alcohol use: None Drug Abuse: None - Past Medical History Cardiac Medical History: Denies: Hx Coronary Artery Disease, Hx Heart Attack, Hx Hypertension Pulmonary Medical History: Reports: Hx Asthma - MILD Denies: Hx Bronchitis, Hx COPD, Hx Pneumonia Neurological Medical History: Reports: Hx Migraine. Denies: Hx Cerebrovascular Accident, Hx Seizures Renal/ Medical History: Reports: Hx Kidney Stones. Denies: Hx Peritoneal Dialysis GI Medical History: Reports: Hx Gastroesophageal Reflux Disease. 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 Denies: Hx Hysterectomy, Hx Mastectomy, Hx Open Heart Surgery, Hx Pacemaker - Immunizations Hx Diphtheria, Pertussis, Tetanus Vaccination: Yes Review of Systems - Review of Systems Constitutional: See HPI, Chills, Fever, Weight loss EENT: No symptoms reported Gastrointestinal: See HPI Physical Exam - Vital signs Vitals: Temp Pulse Resp BP Pulse Ox 98.4 F 55 L 16 151/81 H 100 12/17/17 09:40 12/17/17 09:40 12/17/17 09:40 12/17/17 09:40 12/17/17 09:40 Interpretation: Hypertensive - General General appearance: Anxious In distress: None - HEENT Head: Normocephalic, Atraumatic - Respiratory Respiratory status: No respiratory distress Chest status: Nontender Breath sounds: Normal Chest palpation: Normal - Cardiovascular Rhythm: Regular Heart sounds: Normal auscultation Murmur: No - Abdominal Distension: No distension Bowel sounds: Normal Tenderness: Tender - Mild right lower quadrant tenderness to palpation. Course - Vital Signs Vital signs: Temp Pulse Resp BP Pulse Ox 98.4 F 55 L 16 151/81 H 100 12/17/17 09:40 12/17/17 09:40 12/17/17 09:40 12/17/17 09:40 12/17/17 09:40
[2017-12-17 10:59] LABS: ABSOLUTE EOSINOPHILS # (AUTO) 0.1 10^3/uL (0.0-0.6); ABSOLUTE LYMPHOCYTES (AUTO) 1.4 10^3/uL (0.5-4.7); ABSOLUTE MONOCYTES (AUTO) 0.3 10^3/uL (0.1-1.4); ABSOLUTE NEUT (AUTO) 2.2 10^3/uL (1.7-8.2); BASOPHILS % (AUTO) 0.4 % (0-2); EOSINOPHILS % (AUTO) 2.7 % (0-6); HEMATOCRIT 43.9 % (36.0-47.0); HEMOGLOBIN 14.6 g/dL (12.0-15.5); LYMPHOCYTES % (AUTO) 34.9 % (13-45); MEAN CORPUSCULAR HEMOGLOBIN 29.9 pg (27.0-33.4); MEAN CORPUSCULAR HGB CONC 33.4 g/dL (32.0-36.0); MEAN CORPUSCULAR VOLUME 90 fl (80-97); MONOCYTES % (AUTO) 8.4 % (3-13); PLATELET COUNT 231 10^3/uL (150-450); RED CELL DISTRIBUTION WIDTH 13.6 % (11.5-14.0); SEGMENTED NEUTROPHILS % (AUTO) 53.6 % (42-78); TOTAL CELLS COUNTED % (AUTO) 100 %; WHITE BLOOD COUNT 4.1 10^3/uL (4.0-10.5)
[2017-12-17 11:17] LABS: APPEARANCE,URINE CLEAR; BILIRUBIN,URINE NEGATIVE (NEGATIVE); COLOR,URINE YELLOW; GLUCOSE, URINE NEGATIVE (NEGATIVE); KETONES,URINE NEGATIVE (NEGATIVE); LEUKOCYTE ESTERASE,URINE NEGATIVE (NEGATIVE); NITRITE,URINE NEGATIVE (NEGATIVE); PROTEIN,URINE NEGATIVE (NEGATIVE); URINE SPECIFIC GRAVITY 1.021; UROBILINOGEN,URINE NEGATIVE mg/dL (<2.0)
[2017-12-17 11:19] LABS: ALANINE AMINOTRANSFERASE 33 U/L (9-52); ALKALINE PHOSPHATASE 53 U/L (38-126); ANION GAP 16 (5-19); ASPARTATE AMINO TRANSFERASE 21 U/L (14-36); BILIRUBIN,DIRECT 0.2 mg/dL (0.0-0.4); BILIRUBIN,TOTAL 1.6 mg/dL (0.2-1.3); BLOOD UREA NITROGEN 12 mg/dL (7-20); CARBON DIOXIDE 29 mmol/L (22-30); CHLORIDE 102 mmol/L (98-107); GLUCOSE 93 mg/dL (75-110); POTASSIUM 4.1 mmol/L (3.6-5.0); SODIUM 146.8 mmol/L (137-145); TOTAL PROTEIN 8.1 g/dL (6.3-8.2)
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
--- NOTE | 2017-12-17 15:16 | RADIOLOGY REPORT (SQ) ---
EXAM DESCRIPTION: CT ABD/PELVIS ORAL ONLY COMPLETED DATE/TIME: 12/17/2017 3:03 pm REASON FOR STUDY: 5wks R-sided abd pain w/ 20+ lb wt loss COMPARISON: 09/22/2016 TECHNIQUE: CT scan of the abdomen and pelvis performed with oral contrast and no intravenous contras t. Images reviewed with lung, soft tissue, and bone windows. Reconstructed coronal and sagittal MPR i mages reviewed. All images stored on PACS. All CT scanners at this facility use dose modulation, iterative reconstruction, and/or weight based d osing when appropriate to reduce radiation dose to as low as reasonably achievable (ALARA). [facility]: Dose Right [facility]: CareDose [facility]: Dose Right [facility]: Teradose 4D [facility]: [employer] RADIATION DOSE: CT Rad equipment meets quality standard of care and radiation dose reduction techniq ues were employed. CTDIvol: 5.0 mGy. DLP: 236 mGy-cm.mGy. LIMITATIONS: None. FINDINGS: LOWER CHEST: No significant findings. No nodules or infiltrates. NON-CONTRASTED LIVER, SPLEEN, ADRENALS: Evaluation limited by lack of IV contrast. No identified sign ificant masses. PANCREAS: No masses. No peripancreatic inflammatory changes. GALLBLADDER: Surgically absent. RIGHT KIDNEY AND URETER: No solid masses. Small parenchymal stones. No hydronephrosis or hydroureter . LEFT KIDNEY AND URETER: No solid masses. Small parenchymal stones. No hydronephrosis or hydroureter. AORTA AND RETROPERITONEUM: No aneurysm. No retroperitoneal masses or adenopathy. BOWEL AND PERITONEAL CAVITY: No obvious masses or inflammatory changes. No free fluid. APPENDIX: Not visualized. PELVIS, BLADDER, AND ABDOMINAL WALL: Prior hysterectomy. Trace free fluid. No abdominal wall hernia s. Bladder unremarkable. BONES: No significant findings. OTHER: No other significant finding. IMPRESSION: No acute inflammatory changes. TECHNICAL DOCUMENTATION: JOB ID: [id number] Quality ID # [id number]: Final reports with documentation of one or more dose reduction techniques (e.g., Au tomated exposure control, adjustment of the mA and/or kV according to patient size, use of iterative reconstruction technique) 2010 [employer]- All Rights Reserved Reading location - IP/workstation name: [employer]
[2017-12-17 15:46] VITALS: BP 119/91
== END 2017-12-17 15:45 | disposition home or self-care (01) ==
LOC: ER 09:35
DX: N20.0 Calculus of kidney (principal); R63.4 Abnormal weight loss; Z68.22 Body mass index [BMI] 22.0-22.9, adult; R10.31 Right lower quadrant pain; J45.909 Unspecified asthma, uncomplicated; Z91.041 Radiographic dye allergy status; Z88.8 Allergy status to other drugs, medicaments and biological substances; Z87.19 Personal history of other diseases of the digestive system; Z90.49 Acquired absence of other specified parts of digestive tract; Z98.51 Tubal ligation status
CPT/HCPCS: 36415; 74176; 80053; 81001; 85025; 99284

== ENCOUNTER → 2018-01-27 | Outpatient (CLI) | payer MEDICARE, OTHER ==
--- NOTE | 2018-01-27 12:05 | RADIOLOGY REPORT (SQ) ---
EXAM DESCRIPTION: MRI RT LOWER JOINT WITHOUT COMPLETED DATE/TIME: 01/27/2018 8:56 am REASON FOR STUDY: PAIN IN RIGHT KNEE M25.561 PAIN IN RIGHT KNEE COMPARISON: Radiographs from October. TECHNIQUE: Rightknee images acquired and stored on PACS. Multiplanar images include fat sensitive s equences as T1, water sensitive sequences as FST2 or STIR, cartilage sensitive sequences as FSPD, and gradient echo sequences. LIMITATIONS: None. FINDINGS: JOINT AND BURSAE: Fairly small joint effusion. No loose bodies. BONE CORTEX AND MARROW: No alteration of signal to suggest marrow replacement. No worrisome bone lesi ons. No occult fracture. ACL: Ill definition, nonvisualized proximally consistent with tear. Distal ACL intact. PCL: Intact. MCL: Mild edema along the MCL, superficial and deep. Suggestive of low grade sprain. Fibers general ly intact. LCL: Intact. No periligamentous edema or fluid. MEDIAL MENISCUS: Predominantly horizontal signal in the posterior horn, likely degenerative. Mild bl unting along the free margin. More extensive tear is not suggested. LATERAL MENISCUS: No tears. No abnormal signal. MEDIAL COMPARTMENT: No focal chondral lesions. No reactive bone changes. LATERAL COMPARTMENT: Cartilage preserved. No bone bruises or reactive marrow edema. No osteophytes. PATELLA: Normal location. Chondral thinning near the patellar apex and in the medial facet. No well -defined full-thickness defects appreciated, however there is subtle underlying subchondral edema. F ocal central trochlear cartilage loss is also noted with underlying reactive bone edema. EXTENSOR MECHANISM: Intact. Quadriceps and patella tendons normal. SOFT TISSUES: Adjacent muscles and subcutaneous tissues normal. Normal flow void in popliteal artery and vein. OTHER: No other significant finding. IMPRESSION: 1. Deficient proximal ACL. 2. Low grade sprain the MCL. 3. Medial meniscus changes as above, suspected to largely be degenerative. 4. Patellofemoral chondral disease. TECHNICAL DOCUMENTATION: JOB ID: [id number] [employer]- All Rights Reserved Reading location - IP/workstation name: [email or web address]
== END ==
LOC: RAD 07:03
PROVIDERS: ATTEND Physician Assistant
DX: M25.561 Pain in right knee (principal)

== ENCOUNTER 2018-04-05 00:01 | Emergency (ER) | payer MEDICARE, OTHER ==
[2018-04-05] MEDS ORDERED: KETOROLAC TROMETHAMINE INJ/PF 30 MG/1 ML SDV IV ONE (03:34)
[2018-04-05] MEDS ORDERED: NORMAL SALINE 1000 ML 1,000 ML IV ONE (03:35)
[2018-04-05] MEDS ORDERED: ONDANSETRON HCL INJ/PF 4 MG/2 ML SDV IV ONE (04:02)
[2018-04-05 04:07] LABS: ABSOLUTE EOSINOPHILS # (AUTO) 0.1 10^3/uL (0.0-0.6); ABSOLUTE LYMPHOCYTES (AUTO) 1.2 10^3/uL (0.5-4.7); ABSOLUTE MONOCYTES (AUTO) 0.9 10^3/uL (0.1-1.4); ABSOLUTE NEUT (AUTO) 4.3 10^3/uL (1.7-8.2); BASOPHILS % (AUTO) 0.4 % (0-2); EOSINOPHILS % (AUTO) 1.4 % (0-6); HEMATOCRIT 40.4 % (36.0-47.0); HEMOGLOBIN 13.4 g/dL (12.0-15.5); LYMPHOCYTES % (AUTO) 17.8 % (13-45); MEAN CORPUSCULAR HEMOGLOBIN 29.9 pg (27.0-33.4); MEAN CORPUSCULAR HGB CONC 33.2 g/dL (32.0-36.0); MEAN CORPUSCULAR VOLUME 90 fl (80-97); PLATELET COUNT 262 10^3/uL (150-450); RED BLOOD COUNT 4.48 10^6/uL (3.72-5.28); RED CELL DISTRIBUTION WIDTH 13.4 % (11.5-14.0); SEGMENTED NEUTROPHILS % (AUTO) 66.4 % (42-78); TOTAL CELLS COUNTED % (AUTO) 100 %; WHITE BLOOD COUNT 6.5 10^3/uL (4.0-10.5)
[2018-04-05 04:14] LABS: APPEARANCE,URINE CLEAR; BILIRUBIN,URINE NEGATIVE (NEGATIVE); COLOR,URINE YELLOW; GLUCOSE, URINE NEGATIVE (NEGATIVE); KETONES,URINE NEGATIVE (NEGATIVE); LEUKOCYTE ESTERASE,URINE NEGATIVE (NEGATIVE); NITRITE,URINE NEGATIVE (NEGATIVE); PROTEIN,URINE NEGATIVE (NEGATIVE); URINE SPECIFIC GRAVITY 1.025
[2018-04-05 04:27] LABS: ALANINE AMINOTRANSFERASE 26 U/L (9-52); ALBUMIN 4.6 g/dL (3.5-5.0); ALKALINE PHOSPHATASE 68 U/L (38-126); ANION GAP 11 (5-19); ASPARTATE AMINO TRANSFERASE 24 U/L (14-36); BILIRUBIN,DIRECT 0.3 mg/dL (0.0-0.4); BILIRUBIN,TOTAL 1.5 mg/dL (0.2-1.3); BLOOD UREA NITROGEN 13 mg/dL (7-20); CALCIUM 9.7 mg/dL (8.4-10.2); CARBON DIOXIDE 27 mmol/L (22-30); CHLORIDE 104 mmol/L (98-107); GLUCOSE 102 mg/dL (75-110); LIPASE 62.5 U/L (23-300); POTASSIUM 3.9 mmol/L (3.6-5.0); SODIUM 141.6 mmol/L (137-145); TOTAL PROTEIN 8.1 g/dL (6.3-8.2)
[2018-04-05] MEDS ORDERED: METOCLOPRAMIDE HCL INJ/PF 10 MG/2 ML SDV IV ONE (04:51)
--- NOTE | 2018-04-05 04:55 | ER Document Report ---
ED Medical Screen (RME) - General Chief Complaint: Knee Pain Stated Complaint: KNEE PAIN Time Seen by Provider: 04/05/18 04:34 Notes: 47 year old female with chief complaint of right knee pain, [address] Rogers orthopedics per patient, reports LCL repair, states that for the past 2 days she has has noticed it become painful and warm, states she started feeling chills, states she looked up symptoms of infection and afterwards she started vomiting. Denies injury. TRAVEL OUTSIDE OF THE [place] IN LAST 30 DAYS: No - Related Data Allergies/Adverse Reactions: iodipamide sodium [Iodipamide Sodium] Allergy (Severe, Verified 04/05/18 04:03) RESP DISTRESS IVP dye Allergy (Severe, Uncoded 04/05/18 04:03) resp distress Past Medical History - Social History Chew tobacco use (# tins/day): No Frequency of alcohol use: None Drug Abuse: None - Past Medical History Cardiac Medical History: Denies: Hx Coronary Artery Disease, Hx Heart Attack, Hx Hypertension Pulmonary Medical History: Reports: Hx Asthma - MILD Denies: Hx Bronchitis, Hx COPD, Hx Pneumonia Neurological Medical History: Reports: Hx Migraine. Denies: Hx Cerebrovascular Accident, Hx Seizures Renal/ Medical History: Reports: Hx Kidney Stones. Denies: Hx Peritoneal Dialysis GI Medical History: Reports: Hx Gastroesophageal Reflux Disease. 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 Denies: Hx Hysterectomy, Hx Mastectomy, Hx Open Heart Surgery, Hx Pacemaker - Immunizations Hx Diphtheria, Pertussis, Tetanus Vaccination: Yes Physical Exam - Vital signs Vitals: Temp Pulse Resp BP Pulse Ox 98.4 F 93 20 139/84 H 98 04/05/18 00:08 04/05/18 00:08 04/05/18 00:08 04/05/18 00:08 04/05/18 00:08 - Extremities General lower extremity: Other - Right knee with postop scar, no wound infection , full range of motion of the knee, knee is warm but not significantly erythematous, lower extremity exam unremarkable otherwise. Course - Vital Signs Vital signs: Temp Pulse Resp BP Pulse Ox 99.1 F 92 20 112/85 98 04/05/18 03:41 04/05/18 03:41 04/05/18 03:41 04/05/18 04:01 04/05/18 04:01 - Laboratory Result Diagrams: 04/05/18 03:53 04/05/18 03:53 Laboratory results interpreted by me: 04/05/18 04/05/18 04/05/18 03:53 03:53 03:53 Monocytes % 14.0 H Total Bilirubin 1.5 H Urine Urobilinogen 2.0 H Doctor's Discharge - Discharge Referrals: ALAN DUNCAN PA [Primary Care Provider] - Follow up as needed
--- NOTE | 2018-04-05 05:44 | RADIOLOGY REPORT (SQ) ---
EXAM DESCRIPTION: XR KNEE 4 OR MORE VIEWS COMPLETED DATE/TME: 04/05/2018 04:51 CLINICAL HISTORY: 47 years, Female, post op pain COMPARISON: 11/11/2017 FINDINGS: 4 views of the right knee. Postoperative change of the knee suggesting ACL repair. No acute fracture. No lytic osseous lesions. IMPRESSION: 1. Postoperative change of the knee. No definite acute abnormalities identified. 2010 [employer]- All Rights Reserved
--- NOTE | 2018-04-05 07:45 | ER Document Report ---
ED Extremity Problem, Lower - General Chief Complaint: Knee Pain Stated Complaint: KNEE PAIN Time Seen by Provider: 04/05/18 04:34 Notes: 47 year old female with chief complaint of right knee pain, [address] Rogers orthopedics per patient, reports LCL repair, states that for the past 2 days she has has noticed it become painful and warm, states she started feeling chills, states she looked up symptoms of infection and afterwards she started vomiting. Denies injury. She had several episodes of nausea vomiting she looked up online with this could mean and she thought she could be septic. The patient states she is feeling better now. TRAVEL OUTSIDE OF THE [place] IN LAST 30 DAYS: No - Related Data Allergies/Adverse Reactions: iodipamide sodium [Iodipamide Sodium] Allergy (Severe, Verified 04/05/18 04:03) RESP DISTRESS IVP dye Allergy (Severe, Uncoded 04/05/18 04:03) resp distress Past Medical History - Social History Smoking Status: Never Smoker Chew tobacco use (# tins/day): No Frequency of alcohol use: None Drug Abuse: None Family History: Reviewed & Not Pertinent Patient has suicidal ideation: No Patient has homicidal ideation: No - Past Medical History Cardiac Medical History: Denies: Hx Coronary Artery Disease, Hx Heart Attack, Hx Hypertension Pulmonary Medical History: Reports: Hx Asthma - MILD Denies: Hx Bronchitis, Hx COPD, Hx Pneumonia Neurological Medical History: Reports: Hx Migraine. Denies: Hx Cerebrovascular Accident, Hx Seizures Renal/ Medical History: Reports: Hx Kidney Stones. Denies: Hx Peritoneal Dialysis GI Medical History: Reports: Hx Gastroesophageal Reflux Disease. 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 Denies: Hx Hysterectomy, Hx Mastectomy, Hx Open Heart Surgery, Hx Pacemaker - Immunizations Hx Diphtheria, Pertussis, Tetanus Vaccination: Yes Review of Systems - Review of Systems Constitutional: Chills. denies: Fever EENT: Blurred vision Cardiovascular: denies: Chest pain, Orthopnea Gastrointestinal: Nausea, Vomiting. denies: Diarrhea Genitourinary: denies: Dysuria, Frequency Musculoskeletal: Joint pain. denies: Joint swelling Skin: denies: Rash -: Yes All other systems reviewed and negative Physical Exam - Vital signs Vitals: Temp Pulse Resp BP Pulse Ox 98.4 F 93 20 139/84 H 98 04/05/18 00:08 04/05/18 00:08 04/05/18 00:08 04/05/18 00:08 04/05/18 00:08 - Notes Notes: GENERAL_APPEARANCE: well_nourished, alert, cooperative, no_acute_distress, no_ obvious_discomfort. VITALS: reviewed, see vital signs table. HEAD: no_swelling\tenderness on the head. EYES: PERRL, EOMI, conjunctiva_clear. NOSE: no_nasal_discharge. MOUTH: (-)decreased moisture. NECK: supple, no_neck_tenderness, (-)thyromegaly. BACK: no_back_tenderness. CHEST_WALL: no_chest_tenderness. LUNGS: no_wheezing, no_rales, no_rhonchi, (-)accessory muscle use, good air exchange bilateral. HEART: normal_rate, normal_rhythm, normal_S1, normal_S2, (-)S3, (-)S4, no_ murmur, no_rub. ABDOMEN: normal_BS, soft, no_abd_tenderness, (-)guarding, (-)rebound, no_ organomegaly, no_abd_masses. EXTREMITIES: The right knee incisions clean dry and intact it is not warm it is not red it is not indurated. It is the exact same temperature as the left knee. There is no calf pain or tenderness there are strong dorsalis pedis pulses noted on the right Homans sign is negative. SKIN: warm, dry, good_color, no_rash. MENTAL_STATUS: speech_clear, oriented_X_3, anxious l_affect, responds_ appropriately to questions. Course - Re-evaluation Re-evalutation: 04/05/18 07:44 On exam this is really a well-healed incision for knee replacement. Patient having some subjective heat but I cannot feel a difference when I touch it. There is no fever no leukocytosis. X-ray is normal there is no dehiscence of the wound no redness no drainage. I encouraged follow-up with her orthopedist. I attempted to call Dr. Marisol Rogers's office through the [facility] but have not received a response back I encouraged her to call the office today for a follow-up appointment at this time I do not believe to be an acutely infected postop site. - Vital Signs Vital signs: Temp Pulse Resp BP Pulse Ox 99.1 F 92 16 107/76 100 04/05/18 03:41 04/05/18 03:41 04/05/18 07:00 04/05/18 06:00 04/05/18 07:00 - Laboratory Result Diagrams: 04/05/18 03:53 04/05/18 03:53 Laboratory results interpreted by me: 04/05/18 04/05/18 04/05/18 03:53 03:53 03:53 Monocytes % 14.0 H Total Bilirubin 1.5 H Urine Urobilinogen 2.0 H Discharge - Discharge Clinical Impression: Knee pain, right Qualifiers: Chronicity: acute Qualified Code(s): M25.561 - Pain in right knee Condition: Good Disposition: HOME, SELF-CARE Instructions: Suspected Internal Knee Injury ([facility]) Additional Instructions: His follow-up with Dr. Rogers for further carecall his office today Referrals: ALAN DUNCAN PA [Primary Care Provider] - Follow up as needed
[2018-04-05] MEDS ORDERED: LIDOCAINE 2% VISCOUS SOLN 20 ML UDCUP PO ONE (07:50)
[2018-04-05] MEDS ORDERED: MAG HYDROX/AL HYDROX/SIMETH SUSP 30 ML UDCUP PO ONE (07:50)
[2018-04-05] MEDS ORDERED: METOCLOPRAMIDE HCL ORAL SOLN 10 MG/10 ML UDCUP PO ONE (07:50)
[2018-04-05 08:21] VITALS: BP 109/73
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
--- NOTE | 2018-04-05 09:40 | ER Document Report ---
Doctor's Note Notes: 04/05/18 09:39 The patient seems overly anxious. Her CT scan showed a nonobstructing stone in her right kidney and a small left ovarian cyst. The patient stated she looked up online about her knee and also about her abdomen is concerned she may have had appendicitis patient really does not have pain at McBurney's point no rebound or guarding. Patient will be discharged home.
== END 2018-04-05 09:43 | disposition home or self-care (01) ==
LOC: ER 00:01
DX: M25.561 Pain in right knee (principal); Z96.651 Presence of right artificial knee joint; R11.2 Nausea with vomiting, unspecified
CPT/HCPCS: 99284; 96361; 96374; 36415; 83690; 85025; 85652; 86140; 80053; 81001; 73564; 74176; J3490; J1885; J7030

== ENCOUNTER 2018-07-23 16:57 | Emergency (ER) | payer OTHER, MEDICARE ==
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
[2018-07-23] MEDS ORDERED: IBUPROFEN 800 MG TABLET PO ONE (17:19)
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
[2018-07-23] MEDS ORDERED: HYDROCODONE/ACETAMINOPHEN 5-325 MG TABLET PO ONE (19:04)
[2018-07-23] MEDS ORDERED: METHOCARBAMOL 500 MG TABLET PO ONE (19:04)
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
[2018-07-23 19:36] VITALS: BP 117/75
== END 2018-07-23 19:15 | disposition home or self-care (01) ==
LOC: ER 16:57
DX: S16.1XXA Strain of muscle, fascia and tendon at neck level, initial encounter (principal); V89.2XXA Person injured in unspecified motor-vehicle accident, traffic, initial encounter; Z91.041 Radiographic dye allergy status; Z87.442 Personal history of urinary calculi; Z90.49 Acquired absence of other specified parts of digestive tract; Z98.51 Tubal ligation status
CPT/HCPCS: 70450; 72125; 99284

== ENCOUNTER 2018-08-01 06:22 | Emergency (ER) | payer OTHER, MEDICARE ==
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
[2018-08-01 07:56] VITALS: BP 134/77
== END 2018-08-01 07:56 | disposition home or self-care (01) ==
LOC: ER 06:22
DX: M79.10 Myalgia, unspecified site (principal); M54.2 Cervicalgia; R51 Headache; M79.606 Pain in leg, unspecified; M79.603 Pain in arm, unspecified; V49.9XXA Car occupant (driver) (passenger) injured in unspecified traffic accident, initial encounter; Z91.041 Radiographic dye allergy status; J45.909 Unspecified asthma, uncomplicated
CPT/HCPCS: 99283

== ENCOUNTER 2019-02-12 17:04 | Emergency (ER) | payer MEDICARE, MEDICAID ==
[2019-02-12] MEDS ORDERED: DEXAMETHASONE SOD PHOSPHATE INJ 4 MG/1 ML VIAL IM ONE (17:18)
[2019-02-12] MEDS ORDERED: DIPHENHYDRAMINE HCL 50 MG/ML VIAL IM ONE (17:18)
[2019-02-12] MEDS ORDERED: FAMOTIDINE 20 MG TABLET PO ONE (17:20)
--- NOTE | 2019-02-12 17:21 | ER Document Report ---
ED Medical Screen (RME) - General Chief Complaint: Bee Sting Stated Complaint: BEE STINGS/ALLERGIC REACTION Time Seen by Provider: 02/12/19 17:18 Primary Care Provider: [facility] [Provider Group] - Follow up as needed Mode of Arrival: Ambulatory Information source: Patient Notes: Patient presents emergency department after being stung by at least 10 bee's. They were working outside and the bees came out of the ground. She reports she believes she is allergic to the bees. She reports her ears are likely closing off she is swollen. Patient is very very emotional. Respiratory rate even unlabored I have greeted and performed a rapid initial assessment of this patient. A comprehensive ED assessment and evaluation of the patient, analysis of test results and completion of the medical decision making process will be conducted by additional ED providers. Dictation of this chart was performed using voice recognition software; therefore, there may be some unintended grammatical errors. TRAVEL OUTSIDE OF THE [place] IN LAST 30 DAYS: No - Related Data Allergies/Adverse Reactions: iodipamide sodium [Iodipamide Sodium] Allergy (Severe, Verified 04/05/18 04:03) RESP DISTRESS IVP dye Allergy (Severe, Uncoded 04/05/18 04:03) resp distress BEE Allergy (Uncoded 02/12/19 17:06) Past Medical History - Past Medical History Cardiac Medical History: Denies: Hx Coronary Artery Disease, Hx Heart Attack, Hx Hypertension Pulmonary Medical History: Reports: Hx Asthma - MILD Denies: Hx Bronchitis, Hx COPD, Hx Pneumonia Neurological Medical History: Reports: Hx Migraine. Denies: Hx Cerebrovascular Accident, Hx Seizures Renal/ Medical History: Reports: Hx Kidney Stones. Denies: Hx Peritoneal Dialysis GI Medical History: Reports: Hx Gastroesophageal Reflux Disease. 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 Denies: Hx Hysterectomy, Hx Mastectomy, Hx Open Heart Surgery, Hx Pacemaker - Immunizations Hx Diphtheria, Pertussis, Tetanus Vaccination: Yes Physical Exam - Vital signs Vitals: Temp Pulse Resp BP Pulse Ox 97.9 F 102 H 22 H 149/67 H 99 02/12/19 17:16 02/12/19 17:16 02/12/19 17:16 02/12/19 17:16 02/12/19 17:16 Course - Vital Signs Vital signs: Temp Pulse Resp BP Pulse Ox 99.0 F 66 16 140/80 H 100 02/12/19 19:28 02/12/19 19:28 02/12/19 19:28 02/12/19 19:28 02/12/19 19:28 Doctor's Discharge - Discharge Clinical Impression: Bee sting Condition: Stable Disposition: HOME, SELF-CARE Instructions: Insect Sting ([facility]) Additional Instructions: Please return to the emergency department if you have any worsening, or concern of your symptoms. Please return to the emergency department if you develop chest pain, difficulty breathing, severe abdominal pain, or ongoing vomiting. Please follow-up with your primary care physician in 2-3 days and any other recommended physicians. If prescribed, take all medications as directed. If you have any questions or concerns do not hesitate to return the emergency department for evaluation. You can take Tylenol or ibuprofen at home if your bee stings hurt If you have itching take Benadryl Apply ice to any painful bee stings Referrals: [facility] [Provider Group] - Follow up as needed
[2019-02-12] MEDS ORDERED: IPRATROPIUM/ALBUTEROL 0.5-2.5 MG/3 ML AMPUL NEB ONE (17:23)
[2019-02-12] MEDS ORDERED: EPINEPHRINE INJ/PF 1 MG/1 ML AMPULE IM ONE (17:30)
[2019-02-12] MEDS ORDERED: METHYLPREDNISOLONE INJ 125 MG/2 ML SDV IV ONE (17:40)
[2019-02-12] MEDS ORDERED: METHYLPREDNISOLONE INJ 125 MG/2 ML SDV ONE (17:41)
--- NOTE | 2019-02-12 18:13 | ER Document Report ---
ED General - General Chief Complaint: Bee Sting Stated Complaint: BEE STINGS/ALLERGIC REACTION Time Seen by Provider: 02/12/19 17:18 Mode of Arrival: Ambulatory TRAVEL OUTSIDE OF THE [place] IN LAST 30 DAYS: No - HPI Notes: Patient is a 48-year-old female that presents to the emergency department for chief complaint of allergic reaction. Patient states she was outside using a weed eater when she was stung by bees. She reports feeling at least 10 stings on her bilateral upper and lower extremities. Patient states she thinks she is allergic to bees. She reports feeling short of breath. She states that it is hard to breathe. She does not have an EpiPen and denies history of anaphylaxis. She has not taken any medicine prior to arrival. Past Medical History: Kidney stones, anemia Past Surgical History: Cholecystectomy, hysterectomy, carpal tunnel surgery Social History: Denies drug alcohol and tobacco use Family History: Reviewed and noncontributory for presenting illness Allergies: Reviewed, see documented allergy list. REVIEW OF SYSTEMS: CONSTITUTIONAL : No fever No chills No diaphoresis No recent illness EENT: No vision changes No congestion No sore throat CARDIOVASCULAR: No chest pain No palpitations RESPIRATORY: shortness of breath No cough difficulty breathing GASTROINTESTINAL: No abdominal pain No nausea No vomiting No diarrhea GENITOURINARY: No dysuria No hematuria No difficulty urinating MUSCULOSKELETAL: No back pain No leg pain No arm pain SKIN: No rashes lesions LYMPHATIC: No swollen, enlarged glands. NEUROLOGICAL: No lightheadedness No headache No weakness No paresthesias PSYCHIATRIC: No anxiety No depression PHYSICAL EXAMINATION: Vital signs reviewed, nursing noted reviewed. GENERAL: Well-appearing, well-nourished and in no acute distress. HEAD: Atraumatic, normocephalic. EYES: Eyes appear normal, extraocular movements intact, sclera anicteric, conjunctiva are normal. ENT: No oral pharyngeal edema or uvular edema, nares patent, oropharynx clear without exudates. Moist mucous membranes. NECK: Normal range of motion, supple without lymphadenopathy LUNGS: Tachypneic, breath sounds clear to auscultation bilaterally and equal. No wheezes rales or rhonchi. HEART: Tachycardic rate and regular rhythm without murmurs ABDOMEN: Soft, nontender, normoactive bowel sounds. No rebound, guarding, or rigidity. No masses appreciated. EXTREMITIES: Nontender, good range of motion, no pitting or edema. NEUROLOGICAL: No focal neurological deficits. Moves all extremities spontaneously Motor and sensory grossly intact on exam. PSYCH: Anxious and panicked mood SKIN: Warm, Dry, normal turgor, small area of erythema and induration to lateral left knee, 2 on left forearm, and one on medial right thigh consistent with bee sting. No urticaria - Related Data Allergies/Adverse Reactions: iodipamide sodium [Iodipamide Sodium] Allergy (Severe, Verified 04/05/18 04:03) RESP DISTRESS IVP dye Allergy (Severe, Uncoded 04/05/18 04:03) resp distress BEE Allergy (Uncoded 02/12/19 17:06) Past Medical History - General Information source: Patient - Social History Smoking Status: Never Smoker Family History: Reviewed & Not Pertinent Patient has suicidal ideation: No Patient has homicidal ideation: No - Past Medical History Cardiac Medical History: Denies: Hx Coronary Artery Disease, Hx Heart Attack, Hx Hypertension Pulmonary Medical History: Reports: Hx Asthma - MILD Denies: Hx Bronchitis, Hx COPD, Hx Pneumonia Neurological Medical History: Reports: Hx Migraine. Denies: Hx Cerebrovascular Accident, Hx Seizures Renal/ Medical History: Reports: Hx Kidney Stones. Denies: Hx Peritoneal Dialysis GI Medical History: Reports: Hx Gastroesophageal Reflux Disease. 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 Denies: Hx Hysterectomy, Hx Mastectomy, Hx Open Heart Surgery, Hx Pacemaker - Immunizations Hx Diphtheria, Pertussis, Tetanus Vaccination: Yes Physical Exam - Vital signs Vitals: Temp Pulse Resp BP Pulse Ox 97.9 F 102 H 22 H 149/67 H 99 02/12/19 17:16 02/12/19 17:16 02/12/19 17:16 02/12/19 17:16 02/12/19 17:16 Course - Re-evaluation Re-evalutation: 02/12/19 18:11 Vitals reviewed. Nursing notes reviewed. Patient presented to the emergency room tachypneic and tachycardic. She is very anxious and is hyperventilating. Patient appears to be having a panic attack. She has no oral pharyngeal or lingular edema. She has no lung wheezing. She is oxygenating on room air. Patient is not hypotensive. Clinically she is not in acute anaphylactic shock. Patient received Solu-Medrol, Pepcid, and Benadryl for acute allergic reaction. She is on telemetry monitoring. Symptoms will be monitored. 02/12/19 18:44 Patient reevaluated and appears much calmer. She is no longer tachypneic or tachycardic. Her lung sounds are still normal. Her initial appearance is more consistent with panic from being stung by so many bees than acute allergic reaction. She does have some local inflammation around her bee stings. She is otherwise remained stable. Patient will be discharged home. She was counseled on taking Benadryl, Tylenol, ibuprofen and icing or stings as needed for symptomatic treatment. She was also counseled on return precautions. She is in agreement with plan of care and much improved at discharge - Vital Signs Vital signs: Temp Pulse Resp BP Pulse Ox 97.9 F 59 L 19 137/86 H 100 02/12/19 17:16 02/12/19 18:25 02/12/19 18:25 02/12/19 18:01 02/12/19 18:25 Discharge - Discharge Clinical Impression: Bee sting Qualifiers: Encounter type: initial encounter Injury intent: accidental or unintentional Qualified Code(s): T63.441A - Toxic effect of venom of bees, accidental (unintentional), initial encounter Condition: Stable Disposition: HOME, SELF-CARE Instructions: Insect Sting ([facility]) Additional Instructions: Please return to the emergency department if you have any worsening, or concern of your symptoms. Please return to the emergency department if you develop chest pain, difficulty breathing, severe abdominal pain, or ongoing vomiting. Please follow-up with your primary care physician in 2-3 days and any other recommended physicians. If prescribed, take all medications as directed. If you have any questions or concerns do not hesitate to return the emergency department for evaluation. You can take Tylenol or ibuprofen at home if your bee stings hurt If you have itching take Benadryl Apply ice to any painful bee stings Referrals: [facility] [Provider Group] - Follow up as needed
[2019-02-12 19:30] VITALS: BP 140/80
== END 2019-02-12 19:28 | disposition home or self-care (01) ==
LOC: ER 17:04
DX: T63.441A Toxic effect of venom of bees, accidental (unintentional), initial encounter (principal); R06.02 Shortness of breath; R06.00 Dyspnea, unspecified; X58.XXXA Exposure to other specified factors, initial encounter; Y93.H2 Activity, gardening and landscaping; Y92.009 Unspecified place in unspecified non-institutional (private) residence as the place of occurrence of the external cause; Z87.442 Personal history of urinary calculi; Z90.49 Acquired absence of other specified parts of digestive tract; Z90.710 Acquired absence of both cervix and uterus
CPT/HCPCS: 94640; 99282; 96374; 96375; A9270 ×2; J1200; J2930; J7620

== ENCOUNTER 2019-06-07 13:57 | Emergency (ER) | payer MEDICARE, MEDICAID ==
--- NOTE | 2019-06-07 14:34 | ER Document Report ---
ED Medical Screen (RME) - General Chief Complaint: Low Blood Sugar Stated Complaint: BLOOD SUGAR ISSUES Time Seen by Provider: 06/07/19 14:27 Mode of Arrival: Ambulatory Information source: Patient Notes: 48-year-old female presented to ED for complaint of low blood sugar. She states she has been low below 60 all day. She states she has had multiple episodes of very low blood sugar. Patient is alert oriented respirations regular nonlabored speaking in full sentences. Hysterectomy gallbladder removed she denies smoking drinking or drugs I have greeted and performed a rapid initial assessment of this patient. A comprehensive ED assessment and evaluation of the patient, analysis of test results and completion of medical decision making process will be conducted by an additional ED providers. TRAVEL OUTSIDE OF THE [place] IN LAST 30 DAYS: No - Related Data Allergies/Adverse Reactions: iodipamide sodium [Iodipamide Sodium] Allergy (Severe, Verified 06/07/19 14:27) RESP DISTRESS IVP dye Allergy (Severe, Uncoded 06/07/19 14:27) resp distress BEE Allergy (Uncoded 06/07/19 14:27) Past Medical History - Past Medical History Cardiac Medical History: Denies: Hx Coronary Artery Disease, Hx Heart Attack, Hx Hypertension Pulmonary Medical History: Reports: Hx Asthma - MILD Denies: Hx Bronchitis, Hx COPD, Hx Pneumonia Neurological Medical History: Reports: Hx Migraine. Denies: Hx Cerebrovascular Accident, Hx Seizures Renal/ Medical History: Reports: Hx Kidney Stones. Denies: Hx Peritoneal Dialysis GI Medical History: Reports: Hx Gastroesophageal Reflux Disease. 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 Denies: Hx Hysterectomy, Hx Mastectomy, Hx Open Heart Surgery, Hx Pacemaker - Immunizations Hx Diphtheria, Pertussis, Tetanus Vaccination: Yes Physical Exam - Vital signs Vitals: Temp Pulse Resp BP Pulse Ox 98.7 F 75 16 134/79 H 98 06/07/19 14:03 06/07/19 14:03 06/07/19 14:03 06/07/19 14:03 06/07/19 14:03 Course - Vital Signs Vital signs: Temp Pulse Resp BP Pulse Ox 98.7 F 75 16 134/79 H 98 06/07/19 14:03 06/07/19 14:03 06/07/19 14:03 06/07/19 14:03 06/07/19 14:03
[2019-06-07 15:34] LABS: ABSOLUTE EOSINOPHILS # (AUTO) 0.1 10^3/uL (0.0-0.6); ABSOLUTE LYMPHOCYTES (AUTO) 1.8 10^3/uL (0.5-4.7); ABSOLUTE MONOCYTES (AUTO) 0.5 10^3/uL (0.1-1.4); ABSOLUTE NEUT (AUTO) 2.7 10^3/uL (1.7-8.2); BASOPHILS % (AUTO) 0.3 % (0-2); EOSINOPHILS % (AUTO) 2.1 % (0-6); HEMATOCRIT 43.3 % (36.0-47.0); HEMOGLOBIN 14.6 g/dL (12.0-15.5); LYMPHOCYTES % (AUTO) 34.9 % (13-45); MEAN CORPUSCULAR HEMOGLOBIN 30.8 pg (27.0-33.4); MEAN CORPUSCULAR HGB CONC 33.7 g/dL (32.0-36.0); MEAN CORPUSCULAR VOLUME 92 fl (80-97); MONOCYTES % (AUTO) 10.2 % (3-13); PLATELET COUNT 220 10^3/uL (150-450); RED BLOOD COUNT 4.73 10^6/uL (3.72-5.28); RED CELL DISTRIBUTION WIDTH 13.3 % (11.5-14.0); SEGMENTED NEUTROPHILS % (AUTO) 52.5 % (42-78); TOTAL CELLS COUNTED % (AUTO) 100 %; WHITE BLOOD COUNT 5.1 10^3/uL (4.0-10.5)
[2019-06-07 15:51] LABS: ALBUMIN 4.8 g/dL (3.5-5.0); ALKALINE PHOSPHATASE 54 U/L (38-126); ANION GAP 9 (5-19); ASPARTATE AMINO TRANSFERASE 30 U/L (14-36); BILIRUBIN,DIRECT 0.1 mg/dL (0.0-0.4); BILIRUBIN,TOTAL 1.6 mg/dL (0.2-1.3); BLOOD UREA NITROGEN 12 mg/dL (7-20); CARBON DIOXIDE 28 mmol/L (22-30); CHLORIDE 107 mmol/L (98-107); GLUCOSE 88 mg/dL (75-110); POTASSIUM 4.4 mmol/L (3.6-5.0); TOTAL PROTEIN 7.9 g/dL (6.3-8.2)
[2019-06-07 16:47] LABS: APPEARANCE,URINE SLIGHTLY-CLOUDY; BILIRUBIN,URINE NEGATIVE (NEGATIVE); COLOR,URINE YELLOW; GLUCOSE, URINE NEGATIVE (NEGATIVE); KETONES,URINE NEGATIVE (NEGATIVE); PROTEIN,URINE NEGATIVE (NEGATIVE); URINE SPECIFIC GRAVITY 1.028; UROBILINOGEN,URINE NEGATIVE mg/dL (<2.0)
--- NOTE | 2019-06-07 18:10 | ER Document Report ---
ED General - General Chief Complaint: Low Blood Sugar Stated Complaint: BLOOD SUGAR ISSUES Time Seen by Provider: 06/07/19 14:27 Primary Care Provider: ANGEL GAMBLE MD [Primary Care Provider] - Follow up in 3-5 days Mode of Arrival: Ambulatory TRAVEL OUTSIDE OF THE [place] IN LAST 30 DAYS: No - HPI Notes: 48 year old female to the ED with C/O several episodes of hypoglycemia in the past two days. States that yesterday she measured a sugar of 22. States she then ate and it came up. She has been monitoring it since then and became worried when it was still in the 40s today. She states she has been eating but her daughter states she grazes and does not eat proper meals. She states that she has a history of hypoglycemia and sometimes this will happen to her. Denies any current complaints. States she feels well. BG in ER of 88. - Related Data Allergies/Adverse Reactions: iodipamide sodium [Iodipamide Sodium] Allergy (Severe, Verified 06/07/19 14:27) RESP DISTRESS IVP dye Allergy (Severe, Uncoded 06/07/19 14:27) resp distress BEE Allergy (Uncoded 06/07/19 14:27) Past Medical History - General Information source: Patient - Social History Smoking Status: Never Smoker Chew tobacco use (# tins/day): No Frequency of alcohol use: None Drug Abuse: None Family History: Reviewed & Not Pertinent Patient has suicidal ideation: No Patient has homicidal ideation: No - Past Medical History Cardiac Medical History: Denies: Hx Coronary Artery Disease, Hx Heart Attack, Hx Hypertension Pulmonary Medical History: Reports: Hx Asthma - MILD Denies: Hx Bronchitis, Hx COPD, Hx Pneumonia Neurological Medical History: Reports: Hx Migraine. Denies: Hx Cerebrovascular Accident, Hx Seizures Renal/ Medical History: Reports: Hx Kidney Stones. Denies: Hx Peritoneal Dialysis GI Medical History: Reports: Hx Gastroesophageal Reflux Disease. 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 Denies: Hx Hysterectomy, Hx Mastectomy, Hx Open Heart Surgery, Hx Pacemaker - Immunizations Hx Diphtheria, Pertussis, Tetanus Vaccination: Yes Review of Systems - Review of Systems Constitutional: denies: Chills, Fever EENT: No symptoms reported Cardiovascular: denies: Chest pain, Palpitations, Orthopnea, Dyspnea, Syncope, Dizziness, Lightheaded Respiratory: denies: Cough, Short of breath Gastrointestinal: denies: Abdominal pain, Diarrhea, Nausea, Vomiting Genitourinary: No symptoms reported Female Genitourinary: No symptoms reported Musculoskeletal: No symptoms reported Skin: No symptoms reported Neurological/Psychological: No symptoms reported. denies: Confusion, Lost consciousness, Headaches, Numbness -: Yes All other systems reviewed and negative Physical Exam - Vital signs Vitals: Temp Pulse Resp BP Pulse Ox 98.7 F 75 16 134/79 H 98 06/07/19 14:03 06/07/19 14:03 06/07/19 14:03 06/07/19 14:03 06/07/19 14:03 Interpretation: Normal - General General appearance: Appears well, Alert - HEENT Head: Normocephalic, Atraumatic Eyes: Normal Pupils: PERRL - Respiratory Respiratory status: No respiratory distress Chest status: Nontender Breath sounds: Normal Chest palpation: Normal - Cardiovascular Rhythm: Regular Heart sounds: Normal auscultation Murmur: No - Abdominal Inspection: Normal Distension: No distension Bowel sounds: Normal Tenderness: Nontender Organomegaly: No organomegaly - Back Back: Normal, Nontender - Extremities General upper extremity: Normal inspection, Nontender, Normal color, Normal ROM, Normal temperature General lower extremity: Normal inspection, Nontender, Normal color, Normal ROM, Normal temperature, Normal weight bearing. No: Eileen's sign - Neurological Neuro grossly intact: Yes Cognition: Normal Orientation: AAOx4 [place] Coma Scale Eye Opening: Spontaneous Zay Coma Scale Verbal: Oriented Zay Coma Scale Motor: Obeys Commands [place] Coma Scale Total: 15 Speech: Normal Motor strength normal: LUE, RUE, LLE, RLE Sensory: Normal - Psychological Associated symptoms: Normal affect, Normal mood - Skin Skin Temperature: Warm Skin Moisture: Dry Skin Color: Normal Course - Re-evaluation Re-evalutation: Impression: Episodes of hypoglycemia. Our levels today have been 88 and in the 100s. No edgardo hypoglycemia seen in the ER. Will have her follow up outpatient, nbut ? if her glucometer for home is miscalibrated. Patient agrees with the plan for follow up. Urged to return if worse. - Vital Signs Vital signs: Temp Pulse Resp BP Pulse Ox 98.2 F 71 16 135/70 H 97 06/07/19 18:28 06/07/19 18:28 06/07/19 18:28 06/07/19 18:28 06/07/19 18:28 - Laboratory Result Diagrams: 06/07/19 15:10 06/07/19 15:10 Laboratory results interpreted by me: 06/07/19 06/07/19 15:10 17:13 POC Glucose 117 H Total Bilirubin 1.6 H Discharge - Discharge Clinical Impression: Low blood sugar reading Condition: Stable Disposition: HOME, SELF-CARE Instructions: Hypoglycemia Diet ([facility]) Additional Instructions: EAT. FOLLOW UP WITH [employer]. RETURN IF WORSENING LOW BLOOD SUGAR. Dr. Oleary [id number] [facility] [id number] [place] [address] Referrals: ANGEL GAMBLE MD [Primary Care Provider] - Follow up in 3-5 days
[2019-06-07 18:28] VITALS: BP 135/70
== END 2019-06-07 18:28 | disposition home or self-care (01) ==
LOC: ER 13:57
DX: E16.2 Hypoglycemia, unspecified (principal); J45.909 Unspecified asthma, uncomplicated
CPT/HCPCS: 36415; 80053; 81001; 82962; 84702; 85025; 99284

== ENCOUNTER → 2019-06-18 | Outpatient (CLI) | payer MEDICARE, MEDICAID ==
--- NOTE | 2019-06-18 18:29 | RADIOLOGY REPORT (SQ) ---
EXAM DESCRIPTION: U/S NON-OB PELVIS TV W/O DOP COMPLETED DATE/TIME: 06/18/2019 5:47 pm REASON FOR STUDY: R10.30 LOWER ABDOMINAL PAIN, UNSPECIFIED R10.30 LOWER ABDOMINAL PAIN, UNSPECIFIED COMPARISON: 04/30/2012 TECHNIQUE: Dynamic and static grayscale images acquired of the pelvis via transvaginal approach and recorded on PACS. Additional selected color Doppler and spectral images recorded. LIMITATIONS: None. FINDINGS: UTERUS: Surgically absent. ENDOMETRIAL STRIPE: Not applicable. CERVIX: Not applicable. RIGHT OVARY AND DOPPLER: Normal size. No worrisome masses. Normal arterial vascular flow without evid ence for torsion. LEFT OVARY AND DOPPLER: Ovary not seen. FREE FLUID: None noted. OTHER: No other significant finding. MEASUREMENTS: UTERUS: Absent. ENDOMETRIAL STRIPE: Absent. RIGHT OVARY: 3 x 2.2 x 2.4 cm. LEFT OVARY: Not seen. IMPRESSION: NORMAL TRANSVAGINAL PELVIC ULTRASOUND. TECHNICAL DOCUMENTATION: JOB ID: [id number] [email or web address]- All Rights Reserved Rev-12/16 Reading location - IP/workstation name: [email or web address]
== END ==
LOC: RAD 16:55
PROVIDERS: ATTEND Physician Assistant
DX: R10.30 Lower abdominal pain, unspecified (principal)
CPT/HCPCS: 76830

== ENCOUNTER 2019-09-11 11:03 | Emergency (ER) | payer MEDICARE, MEDICAID ==
[2019-09-11] MEDS ORDERED: KETOROLAC TROMETHAMINE INJ/PF 30 MG/1 ML SDV IV ONE ×2 (11:58→14:30)
[2019-09-11] MEDS ORDERED: NORMAL SALINE 1000 ML 1,000 ML IV ONE ×2 (11:58→14:20)
--- NOTE | 2019-09-11 12:00 | ER Document Report ---
ED Medical Screen (RME) - General Chief Complaint: Flank Pain Stated Complaint: BLOOD IN URINE Time Seen by Provider: 09/11/19 11:53 Primary Care Provider: RILEY SCHMIDT PA-C [Primary Care Provider] - Follow up as needed Mode of Arrival: Ambulatory Information source: Patient Notes: 49-year-old female presents emergency department with complaints of left-sided flank pain left lower quad abdominal pain. She reports on Tuesday her back started hurting. She now reports left lower quadrant abdominal pain that radiates to her left side and all the way to the back. Denies pain with void. Denies fever nausea vomiting diarrhea. Reports she is constipated. Reports history of kidney stones. She also reports she has possibly diverticulitis but she does not remember. I have greeted and performed a rapid initial assessment of this patient. A comprehensive ED assessment and evaluation of the patient, analysis of test results and completion of the medical decision making process will be conducted by additional ED providers. TRAVEL OUTSIDE OF THE [place] IN LAST 30 DAYS: No - Related Data Allergies/Adverse Reactions: iodipamide sodium [Iodipamide Sodium] Allergy (Severe, Verified 06/07/19 14:27) RESP DISTRESS IVP dye Allergy (Severe, Uncoded 06/07/19 14:27) resp distress BEE Allergy (Uncoded 06/07/19 14:27) Past Medical History - General Information source: Patient - Social History Frequency of alcohol use: None Drug Abuse: None - Past Medical History Cardiac Medical History: Denies: Hx Coronary Artery Disease, Hx Heart Attack, Hx Hypertension Pulmonary Medical History: Reports: Hx Asthma - MILD Denies: Hx Bronchitis, Hx COPD, Hx Pneumonia Neurological Medical History: Reports: Hx Migraine. Denies: Hx Cerebrovascular Accident, Hx Seizures Renal/ Medical History: Reports: Hx Kidney Stones. Denies: Hx Peritoneal Dialysis GI Medical History: Reports: Hx Gastroesophageal Reflux Disease. 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 Denies: Hx Hysterectomy, Hx Mastectomy, Hx Open Heart Surgery, Hx Pacemaker - Immunizations Hx Diphtheria, Pertussis, Tetanus Vaccination: Yes Physical Exam - Vital signs Vitals: Temp Pulse Resp BP Pulse Ox 98.2 F 108 H 22 H 136/81 H 100 09/11/19 11:10 09/11/19 11:10 09/11/19 11:10 09/11/19 11:10 09/11/19 11:10 Course - Vital Signs Vital signs: Temp Pulse Resp BP Pulse Ox 98.2 F 108 H 22 H 136/81 H 100 09/11/19 11:10 09/11/19 11:10 09/11/19 11:10 09/11/19 11:10 09/11/19 11:10 Doctor's Discharge - Discharge Referrals: RILEY SCHMIDT PA-C [Primary Care Provider] - Follow up as needed
[2019-09-11 12:44] LABS: ABSOLUTE EOSINOPHILS # (AUTO) 0.1 10^3/uL (0.0-0.6); ABSOLUTE LYMPHOCYTES (AUTO) 1.2 10^3/uL (0.5-4.7); ABSOLUTE MONOCYTES (AUTO) 0.6 10^3/uL (0.1-1.4); ABSOLUTE NEUT (AUTO) 6.6 10^3/uL (1.7-8.2); BASOPHILS % (AUTO) 0.2 % (0-2); EOSINOPHILS % (AUTO) 0.9 % (0-6); HEMATOCRIT 42.2 % (36.0-47.0); HEMOGLOBIN 14.4 g/dL (12.0-15.5); LYMPHOCYTES % (AUTO) 13.8 % (13-45); MEAN CORPUSCULAR HEMOGLOBIN 31.1 pg (27.0-33.4); MEAN CORPUSCULAR HGB CONC 34.1 g/dL (32.0-36.0); MEAN CORPUSCULAR VOLUME 91 fl (80-97); PLATELET COUNT 229 10^3/uL (150-450); RED BLOOD COUNT 4.64 10^6/uL (3.72-5.28); RED CELL DISTRIBUTION WIDTH 13.3 % (11.5-14.0); SEGMENTED NEUTROPHILS % (AUTO) 78.1 % (42-78); TOTAL CELLS COUNTED % (AUTO) 100 %; WHITE BLOOD COUNT 8.5 10^3/uL (4.0-10.5)
[2019-09-11 12:52] LABS: APPEARANCE,URINE CLEAR; BILIRUBIN,URINE NEGATIVE (NEGATIVE); COLOR,URINE STRAW; GLUCOSE, URINE NEGATIVE (NEGATIVE); KETONES,URINE NEGATIVE (NEGATIVE); PROTEIN,URINE NEGATIVE (NEGATIVE); URINE SPECIFIC GRAVITY 1.008; UROBILINOGEN,URINE NEGATIVE mg/dL (<2.0)
[2019-09-11 13:05] LABS: ALBUMIN 4.8 g/dL (3.5-5.0); ALKALINE PHOSPHATASE 65 U/L (38-126); ANION GAP 10 (5-19); ASPARTATE AMINO TRANSFERASE 30 U/L (14-36); BILIRUBIN,DIRECT 0.1 mg/dL (0.0-0.4); BILIRUBIN,TOTAL 1.3 mg/dL (0.2-1.3); BLOOD UREA NITROGEN 12 mg/dL (7-20); CALCIUM 9.6 mg/dL (8.4-10.2); CARBON DIOXIDE 27 mmol/L (22-30); CHLORIDE 103 mmol/L (98-107); GLUCOSE 85 mg/dL (75-110); POTASSIUM 4.7 mmol/L (3.6-5.0); TOTAL PROTEIN 8.1 g/dL (6.3-8.2)
[2019-09-11] MEDS ORDERED: ONDANSETRON HCL INJ/PF 4 MG/2 ML SDV IV ONE (14:27)
--- NOTE | 2019-09-11 14:34 | ER Document Report ---
ED General - General Chief Complaint: Flank Pain Stated Complaint: BLOOD IN URINE Time Seen by Provider: 09/11/19 11:53 Primary Care Provider: ALFREDO MARTINEZ MD [[facility]] - Follow up in 3-5 days ZEALLEM FLOYD MD [[facility]] - Follow up in 3-5 days WES ABBASI MD [NO [facility] MD] - Follow up in 3-5 days RILEY SCHMIDT PA-C [PHYSICIAN [employer] SCIENTIST] - Follow up in 3-5 days Mode of Arrival: Ambulatory Notes: 49-year-old female with history of diverticulitis and kidney stones presents with bilateral flank and lower abdominal pain. Patient states she has had low back pain for the past several weeks and it became worse on Tuesday. Patient states symptoms started to radiate to her left lower quadrant. Patient states that the flank pain is worse on the left side. Patient states hematuria started today and she passed 2 "BB sized myranda". Associated nausea. Patient denies any dysuria, vomiting, diarrhea. Patient states she may be constipated. Patient also states she has felt intermittently hot and cold. TRAVEL OUTSIDE OF THE [place] IN LAST 30 DAYS: No - Related Data Allergies/Adverse Reactions: iodipamide sodium [Iodipamide Sodium] Allergy (Severe, Verified 06/07/19 14:27) RESP DISTRESS IVP dye Allergy (Severe, Uncoded 06/07/19 14:27) resp distress BEE Allergy (Uncoded 06/07/19 14:27) Past Medical History - General Information source: Patient - Social History Smoking Status: Never Smoker Frequency of alcohol use: None Drug Abuse: None Family History: Reviewed & Not Pertinent Patient has suicidal ideation: No Patient has homicidal ideation: No - Past Medical History Cardiac Medical History: Denies: Hx Coronary Artery Disease, Hx Heart Attack, Hx Hypertension Pulmonary Medical History: Reports: Hx Asthma - MILD Denies: Hx Bronchitis, Hx COPD, Hx Pneumonia Neurological Medical History: Reports: Hx Migraine. Denies: Hx Cerebrovascular Accident, Hx Seizures Renal/ Medical History: Reports: Hx Kidney Stones. Denies: Hx Peritoneal Dialysis GI Medical History: Reports: Hx Gastroesophageal Reflux Disease. 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 Denies: Hx Hysterectomy, Hx Mastectomy, Hx Open Heart Surgery, Hx Pacemaker - Immunizations Hx Diphtheria, Pertussis, Tetanus Vaccination: Yes Review of Systems - Review of Systems Notes: Constitutional: Negative for fever. HENT: Negative for sore throat. Eyes: Negative for visual changes. Cardiovascular: Negative for chest pain. Respiratory: Negative for shortness of breath. Gastrointestinal: Positive for abdominal pain and nausea. Negative for vomiting or diarrhea. Genitourinary: Positive for hematuria and flank pain. Negative for dysuria. Musculoskeletal: Negative for back pain. Skin: Negative for rash. Neurological: Negative for headaches, weakness or numbness. 10 point ROS negative except as marked above and in HPI. Physical Exam - Vital signs Vitals: Temp Pulse Resp BP Pulse Ox 98.2 F 108 H 22 H 136/81 H 100 09/11/19 11:10 09/11/19 11:10 09/11/19 11:10 09/11/19 11:10 09/11/19 11:10 - Notes Notes: GENERAL: Well-appearing, well-nourished and uncomfortable. HEAD: Atraumatic, normocephalic. EYES: Extraocular movements intact, sclera anicteric, conjunctiva are normal. NECK: Normal range of motion, supple without lymphadenopathy or JVD. LUNGS: Breath sounds clear to auscultation bilaterally and equal. No wheezes rales or rhonchi. HEART: Regular rate and rhythm without murmurs, rubs or gallops. ABDOMEN: Soft, mild tenderness to LLQ. No guarding, no rebound. No masses appreciated. +CVA tenderness on left. EXTREMITIES: Normal range of motion, no pitting or edema. No clubbing or cyanosis. NEUROLOGICAL: Cranial nerves II through XII grossly intact. Normal speech, normal gait. PSYCH: Normal mood, normal affect. SKIN: Warm, Dry, normal turgor, no rashes or lesions noted. Course - Re-evaluation Re-evalutation: 09/11/19 49 y/o female presents for LLQ pain and flank pain worse on left than right. Associated hematuria and nausea. Pt is afebrile. No leukocytosis. labwork is otherwise unremarkable. Abd soft, mild tenderness to LLQ and CVA tenderness on left. Differentials include diverticulitis vs left ureteral stone. Low suspicion for appendicitis as pt has no RLQ pain, no fever, and no leukocytosis. CT abdomen/pelvis ordered. 09/11/19 15:42 CT shows kidney stones with no diverticulitis. Symptoms most consistent with possibly passed stone/passing stone. Pt given strict return precautions and follow up with PCP and urologist. CT results discussed with pt and given copy of results. Pt voices understanding and agrees with plan of care. - Vital Signs Vital signs: Temp Pulse Resp BP Pulse Ox 98.2 F 108 H 22 H 136/81 H 100 09/11/19 11:10 09/11/19 11:10 09/11/19 11:10 09/11/19 11:10 09/11/19 11:10 - Laboratory Result Diagrams: 09/11/19 12:18 09/11/19 12:18 Laboratory results interpreted by me: 09/11/19 09/11/19 12:18 12:18 Seg Neutrophils % 78.1 H Urine Blood MODERATE H Leukocyte Esterase Rfl MODERATE H Discharge - Discharge Clinical Impression: Kidney stone, Flank pain Hematuria Qualifiers: Hematuria type: unspecified type Qualified Code(s): R31.9 - Hematuria, unspecified Condition: Stable Disposition: HOME, SELF-CARE Instructions: Abdominal Pain ([facility]), Toradol Injection ([facility]) Additional Instructions: Your workup today was reassuring. Please take medication as prescribed. Please follow up with your primary care doctor or one of the clinics listed in 1 week. Follow up with one of the urologists listed in 3-5 days. Return immediately to ER for any worsening symptoms, including fever, worsening flank pain, worsening abdominal pain, vomiting not controlled by medication, chest pain, shortness of breath, inability to urinate, or any other symptoms that are concerning to you. Prescriptions: Tamsulosin HCl [Flomax 0.4 mg Cap.sr] 0.4 mg PO DAILY #7 cap.sr.24h Ibuprofen [Motrin 800 mg Tablet] 800 mg PO Q8H PRN #30 tab PRN Reason: Ondansetron [Zofran Odt 4 mg Tablet] 1 - 2 tab PO Q4H PRN #15 tab.rapdis PRN Reason: For Nausea/Vomiting Forms: Return to Work Referrals: RILEY SCHMIDT PA-C [PHYSICIAN [employer] SCIENTIST] - Follow up in 3-5 days ALFREDO MARTINEZ MD [[facility]] - Follow up in 3-5 days WES ABBASI MD [NO LOCAL MD] - Follow up in 3-5 days ZELALEM FLOYD MD [[facility]] - Follow up in 3-5 days
--- NOTE | 2019-09-11 15:19 | RADIOLOGY REPORT (SQ) ---
EXAM DESCRIPTION: CT ABD/PELVIS NO ORAL OR IV COMPLETED DATE/TIME: 09/11/2019 3:02 pm REASON FOR STUDY: L flank/LLQ pain;hx diverticulitis/kidney stones COMPARISON: 04/05/2018. TECHNIQUE: CT scan of the abdomen and pelvis performed without intravenous or oral contrast. Images reviewed with lung, soft tissue, and bone windows. Reconstructed coronal and sagittal MPR images revi ewed. All images stored on PACS. All CT scanners at this facility use dose modulation, iterative reconstruction, and/or weight based d osing when appropriate to reduce radiation dose to as low as reasonably achievable (ALARA). [facility]: Dose Right [facility]: CareDose [facility]: Dose Right [facility]: Teradose 4D [facility]: Smart [employer] RADIATION DOSE: CT Rad equipment meets quality standard of care and radiation dose reduction techniq ues were employed. CTDIvol: 5.6 mGy. DLP: 292 mGy-cm.mGy. LIMITATIONS: None. FINDINGS: LOWER CHEST: No significant findings. No nodules or infiltrates. NON-CONTRASTED LIVER, SPLEEN, ADRENALS: Evaluation limited by lack of IV contrast. No identified sign ificant masses. PANCREAS: No masses. No peripancreatic inflammatory changes. GALLBLADDER: Surgically absent. RIGHT KIDNEY AND URETER: No suspicious masses. Assessment limited by lack of IV contrast. Small phi yceal calculi. No hydronephrosis or hydroureter. LEFT KIDNEY AND URETER: No suspicious masses. Assessment limited by lack of IV contrast. Small ira ceal calculi. No hydronephrosis or hydroureter. AORTA AND RETROPERITONEUM: No aneurysm. No retroperitoneal masses or adenopathy. BOWEL AND PERITONEAL CAVITY: There are few diverticuli in the sigmoid colon. No obvious masses or in flammatory changes. No free fluid. APPENDIX: Not visualized. PELVIS, BLADDER, AND ABDOMINAL WALL:No abnormal masses. No free fluid. Bladder normal. BONES: No significant findings. OTHER: No other significant finding. IMPRESSION: 1. SMALL NONOBSTRUCTING BILATERAL RENAL CALCULI. 2. MILD SIGMOID DIVERTICULOSIS. NO EVIDENCE OF DIVERTICULITIS. 3. NO OTHER SIGNIFICANT OR ACUTE PROCESS IN THE ABDOMEN OR PELVIS. COMMENT: Quality ID # 436: Final reports with documentation of one or more dose reduction techniques (e.g., Automated exposure control, adjustment of the mA and/or kV according to patient size, use of iterative reconstruction technique) TECHNICAL DOCUMENTATION: JOB ID: [id number] 2010 [employer]- All Rights Reserved Reading location - IP/workstation name: [email or web address]
[2019-09-11] MEDS ORDERED: HYDROCODONE/ACETAMINOPHEN 5-325 MG (6 TAB/ER DISP) PO PRN (15:37)
[2019-09-11] MEDS ORDERED: MORPHINE SULFATE 10 MG/ML INJ IV ONE (15:41)
[2019-09-11 16:24] VITALS: BP 123/81
== END 2019-09-11 16:18 | disposition home or self-care (01) ==
LOC: ER 11:03
DX: N20.0 Calculus of kidney (principal); R10.9 Unspecified abdominal pain; R10.32 Left lower quadrant pain; R10.814 Left lower quadrant abdominal tenderness; M54.5 Low back pain; R11.0 Nausea; J45.909 Unspecified asthma, uncomplicated; Z88.8 Allergy status to other drugs, medicaments and biological substances; Z91.041 Radiographic dye allergy status; Z91.030 Bee allergy status
CPT/HCPCS: 36415; 74176; 80053; 81001; 85025; 87086; 87088; 87186; 96361; 96374; 96375; 99284; J1885; J2270; J2405; J7030

== ENCOUNTER → 2020-01-10 | Outpatient (CLI) | payer MEDICARE, MEDICAID ==
--- NOTE | 2020-01-10 11:14 | RADIOLOGY REPORT (SQ) ---
EXAM DESCRIPTION: CT ABD/PELVIS ORAL ONLY IMAGES COMPLETED DATE/TIME: 01/10/2020 9:28 am REASON FOR STUDY: UNSPEC ABD PAIN (R10.9), CONSTIPATION (K59.00) R10.9 UNSPECIFIED ABDOMINAL PAIN K 59.00 CONSTIPATION, UNSPECIFIED COMPARISON: 09/11/2019 TECHNIQUE: CT scan of the abdomen and pelvis performed with oral contrast and no intravenous contras t. Images reviewed with lung, soft tissue, and bone windows. Reconstructed coronal and sagittal MPR i mages reviewed. All images stored on PACS. All CT scanners at this facility use dose modulation, iterative reconstruction, and/or weight based d osing when appropriate to reduce radiation dose to as low as reasonably achievable (ALARA). [facility]: Dose Right [facility]: CareDose [facility]: Dose Right [facility]: Teradose 4D [facility]: Smart [employer] RADIATION DOSE: CT Rad equipment meets quality standard of care and radiation dose reduction techniq ues were employed. CTDIvol: 5.7 mGy. DLP: 288 mGy-cm. mGy. LIMITATIONS: None. FINDINGS: LOWER CHEST: No significant findings. No nodules or infiltrates. NON-CONTRASTED LIVER, SPLEEN, ADRENALS: Evaluation limited by lack of IV contrast. No identified sign ificant masses. PANCREAS: No masses. No peripancreatic inflammatory changes. GALLBLADDER: Surgically absent. RIGHT KIDNEY AND URETER: No suspicious masses. Assessment limited by lack of IV contrast. 4 mm wale l calculus. No hydronephrosis or hydroureter. LEFT KIDNEY AND URETER: No suspicious masses. Assessment limited by lack of IV contrast. 2 mm renal calculus. No hydronephrosis or hydroureter. AORTA AND RETROPERITONEUM: No aneurysm. No retroperitoneal masses or adenopathy. BOWEL AND PERITONEAL CAVITY: Sigmoid diverticulosis. No obvious masses or inflammatory changes. No f ree fluid. APPENDIX: Normal. PELVIS, BLADDER, AND ABDOMINAL WALL: No abnormal pelvic masses. No abdominal wall hernias. Bladder un remarkable. BONES: No significant findings. OTHER: No other significant finding. IMPRESSION: No acute findings. Sigmoid diverticulosis without evidence of diverticulitis. Nonobstr ucting small renal calculi. TECHNICAL DOCUMENTATION: JOB ID: [id number] Quality ID # [id number]: Final reports with documentation of one or more dose reduction techniques (e.g., Au tomated exposure control, adjustment of the mA and/or kV according to patient size, use of iterative reconstruction technique) 2010 [employer]- All Rights Reserved Reading location - IP/workstation name: [email or web address]
== END ==
LOC: RAD 09:08
PROVIDERS: ATTEND Surgery
DX: R10.9 Unspecified abdominal pain (principal); K59.00 Constipation, unspecified
CPT/HCPCS: 74176